=== PATIENT | male | born 1960 | race Caucasian/White ===

== ENCOUNTER 2021-10-26 12:47 | Outpatient (CLI) | payer BC, SELFPAY ==
[2021-10-26 14:43] LABS: Albumin* 3.8 g/dL (3.3-5.0); Chloride* 108 mmol/L (96-114)
[2021-10-26 14:44] LABS: Potassium* 4.4 mmol/L (3.6-5.1); Sodium* 137 mmol/L (135-149)
[2021-10-26 14:46] LABS: Alkaline Phosphatase* 81 U/L (40-150); Aspartate Amino Transferase* 25 U/L (12-35); Bilirubin Total* 0.9 mg/dL (0.1-1.5); Blood Urea Nitrogen* 16 mg/dL (7-30); Carbon Dioxide* 24 mmol/L (20-32); Cholesterol* 209 mg/dL (90-199); Creatinine* 0.8 mg/dL (0.5-1.5); Estimated Glomerular Filt Rate 100 ml/min; Total Protein* 6.3 g/dL (6.0-8.3)
[2021-10-26 14:47] LABS: Alanine Aminotransferase* 20 U/L (4-50); Calcium* 8.7 mg/dL (8.4-10.6); Glucose* 121 mg/dL (60-115); HDL Cholesterol* 45 mg/dL (>=40); LDL Cholesterol Calculated 148 mg/dL (<100); Triglycerides* 80 mg/dL (40-149)
[2021-10-26 15:18] LABS: PSA Screen* 0.72 ng/mL (0.10-4.00)
== END 2021-10-26 12:48 | disposition home or self-care (01) ==
PROVIDERS: PCP Family Medicine; Visit Provider Physician Assistant Medical
DX: Z00.00 Encounter for general adult medical examination without abnormal findings (principal); B00.9 Herpesviral infection, unspecified; Z12.5 Encounter for screening for malignant neoplasm of prostate; Z13.6 Encounter for screening for cardiovascular disorders
CPT/HCPCS: 80053; 80061; 84153

== ENCOUNTER 2021-11-05 10:10 | Emergency (ER) | payer BC, SELFPAY ==
[2021-11-05] VITALS (8 sets, daily range): BP systolic 95–128; BP diastolic 54–80; PULSE 69–86; RESP 18; TEMP 36.9; O2SAT 93–97; BMI 26.6
--- NOTE | 2021-11-05 10:50 | CRLHL7_ITS ---
For Patients: As a result of the Century Cures Act, medical imaging exams and procedure reports are released immediately into your electronic medical record. You may view this report before your referring provider. If you have questions, please contact your health care provider. INDICATION: Right upper abdominal pain TECHNIQUE: Ultrasound abdomen limited. Sonographic images of the right upper quadrant were obtained using cano-scale and color Doppler images. COMPARISON: None FINDINGS: The gallbladder is sonographically unremarkable with no cholelithiasis, gallbladder wall thickening, pericholecystic fluid, gallbladder distension or reported sonographic Velasquez sign. The common duct measures 3 millimeters in maximum diameter which is within the normal range. The visualized portions of the liver, right kidney and abdominal aorta appear normal. IMPRESSION: 1. Normal-appearing gallbladder with no biliary duct dilation. 2. Other findings are as discussed above. Dictated by Mitul Pretty MD @ 11/05/2021 12:41:48 PM (Electronically Signed)
--- NOTE | 2021-11-05 11:06 | ED.ABDPAIN ---
HPI - Abdominal Pain General Date Seen: 11/05/21 Chief Complaint: Abdominal Pain Stated Complaint: Stomach pains Time Seen by Provider: 11/05/21 10:19 Source: patient and family Mode of arrival: ambulatory Limitations: no limitations History of Present Illness HPI narrative: Patient is a very nice 61-year-old gentleman who presents here with his significant other for evaluation of right upper quadrant pain that started last night approximately at all 11:00 p.m.. This awoke him from sleep, he was unable to get comfortable, slight radiation to the back is noted, he ended up going onto the couch all night. Did vomit once last night, with this, and is been nauseous. Never had this before, there is no migration, he describes pain is 8/10 currently. No fevers chills, normal bowel movements, and no dysuria noted. No previous history of this, previous hernia repair, denies use of alcohol, I did not try any other medications or treatments last night. MD elicited complaint: abdominal pain Pertinent past history: none Onset (ago): hour(s) (Started 11:00 p.m. last night) Pain Consistency: constant and intermittent Location: RUQ Severity: moderate Quality: cramping and stabbing Radiation: back Migration to: no migration Exacerbating factors: vomiting and movement Relieving factors: nothing Associated symptoms: nausea and vomiting Related Data Home Medications Medication Instructions Recorded Confirmed fluticasone furoate 27.5 2 spray intranasal QDAY 10/21/21 10/21/21 mcg/actuation nasal spray,suspension (Flonase Sensimist) Previous Rx's Medication Instructions Recorded valacyclovir 1 gram tablet 2,000 mg PO BID #30 tabs 10/21/21 (Valtrex) Allergies Allergy/AdvReac Type Severity Reaction Status Date / Time penicillin V Allergy Unknown Verified 11/05/21 12:20 Ragweed pollen Allergy Mild runny nose Uncoded 10/21/21 12:24 Review of Systems Status of ROS Reports: 10 or more systems reviewed and unremarkable except as noted in History and below PFSH PFSH Surgical History (Updated 10/20/21 @ 13:25 by Jessie Bentley) History of colonoscopy with polypectomy History of left inguinal hernia repair History of repair of rotator cuff Family History (Updated 10/20/21 @ 13:30 by Jessie Bentley) Brother Cerebral aneurysm Liver cancer Myocardial infarction Sister Cerebral aneurysm Social History (Updated 10/20/21 @ 13:31 by Jessie Bentley) Narrative: Chewing tobacco nicotine dependence Does not use illicit drugs occasional alcohol consumption Smoking Status: Never smoker Do you use any of these nicotine containing products: Smokeless Tobacco How often do you have a drink containing alcohol: 2-4 times a month How many standard drinks containing alcohol do you have on a typical day: 1 or 2 How often do you have six or more drinks on one occasion: Never AUDIT-C Alcohol total score: 2 Non-prescribed substance use: denies use service: No Exam Narrative: Exam Narrative: Patient is seen and stab 2, appears to be in some mild distress, vital signs appreciated. Nontoxic Pupils are equal round reactive to light, no scleral icterus redness is noted, this TMs are normal, oropharynx is normal, there is no adenopathy in the anterior posterior chains, neck is supple full range of motion is listed, JVP is flat, chest is good air entry bilaterally with no wheezing crackles noted heart sounds no clicks murmurs or gallops, abdomen is diffusely distended, with right upper quadrant pain on [id number] palpation, bowel sounds are normal, no CVA tenderness is noted. No hernias noted, normal male genitalia, with no tenderness over the groin all regions or testicles bilaterally. Skin reveals no petechiae or rashes he moves all extremities independently well, he does have a bit of a irais complexion consistent with rosacea. Neurologically intact in his upper lower extremities with proximal and distal muscle strength assessed and normal, and bilaterally symmetrical Const: Vital Signs, click to edit/add: Vital Signs - 24 hr 11/05/21 10:19 11/05/21 11:55 11/05/21 11:00 Temperature 98.4 F Pulse Rate [Right Pulse Oximeter] 69 85 69 Respiratory Rate 18 18 18 Blood Pressure [Ri ght Upper Arm] 128/80 108/68 125/79 Pulse Oximetry 96 94 97 Oxygen Delivery Me thod Room Air Room Air Room Air 11/05/21 12:30 11/05/21 13:00 11/05/21 13:30 Temperature Pulse Rate [Right Pulse Oximeter] 86 84 Respiratory Rate Blood Pressure [Ri ght Upper Arm] 99/54 L 99/62 95/62 Pulse Oximetry 93 94 Oxygen Delivery Me thod Room Air Room Air 11/05/21 14:36 11/05/21 15:00 Temperature Pulse Rate [Right Pulse Oximeter] 78 Respiratory Rate Blood Pressure [Ri ght Upper Arm] 113/69 108/75 Pulse Oximetry 94 95 Oxygen Delivery Me thod Room Air Room Air Documenting provider has reviewed patient's vital signs: yes Course Course Hospital Course: 1255 p.m. I went back in and spoke to the patient and his , the ultrasound by my review shows no evidence of any biliary or right kidney issue. Given the degree of his pain when initially some I think it would be reasonable to do a CT with IV contrast to further delineate this. They are comfortable with this plan, instead of waiting for the formal ultrasound report. His pain is much better at this point describing it approximately a 2/10 to me. I did review the CT, showed a normal appendix, maybe a little bit of right-sided hydronephrosis but no evidence of a kidney stone. Possibility of a recent passed kidney stone is also noted. Do not see any evidence of an abdominal aortic aneurysm, gallbladder. Slightly distended but otherwise normal without stones or wall thickening. There was some evidence of some murky Jefry around the sigmoid colon on the right side I wonder if maybe a touch of diverticulitis is there. Vital Signs Vital signs: Initial Vital Signs Temperature 98.4 F 11/05/21 10:19 Temperature Source Temporal Artery Scan 11/05/21 10:19 Pulse Rate 69 11/05/21 10:19 Respiratory Rate 18 11/05/21 10:19 Blood Pressure 128/80 11/05/21 10:19 Blood Pressure Mean 96 11/05/21 10:19 Blood Pressure Position Sitting 11/05/21 10:19 Pulse Oximetry 96 11/05/21 10:19 Oxygen Delivery Method 11/05/21 10:19 Vital Signs Temperature 98.4 F 11/05/21 10:19 Pulse Rate 69 11/05/21 10:19 Respiratory Rate 18 11/05/21 10:19 Blood Pressure 128/80 11/05/21 10:19 Pulse Oximetry 96 11/05/21 10:19 Oxygen Delivery Method 11/05/21 10:19 Temperature 98.4 F 11/05/21 10:19 Pulse Rate 78 11/05/21 15:00 Respiratory Rate 18 11/05/21 11:55 Blood Pressure 108/75 11/05/21 15:00 Pulse Oximetry 95 11/05/21 15:00 Oxygen Delivery Method 11/05/21 15:00 MDM - Abdominal Pain MDM Narrative Medical decision making narrative: During this evaluation of this patient I considered multiple differential diagnosis is which included the life-threatening such as appendicitis, aortic aneurysm, mesenteric ischemia, bowel perforation, volvulus, and bowel obstruction. Other differential diagnosis is include but are not limited to cholecystitis, pancreatitis, hepatitis, gastritis, GERD, diverticulitis, peptic ulcer disease, pyelonephritis/UTI, renal colic/stone, testicular torsion as well as other acute scrotal processes, inflammatory bowel disease, as well as other etiologies Differential Diagnosis Differential diagnosis: Likely abdominal pain, acute appendicitis, calculus of kidney, constipation, diverticulitis, gastroenteritis, pancreatitis and small bowel obstruction Medical Records Attestation: I reviewed the patient's medical records. Lab Data Attestation: I reviewed the patient's lab results. Labs: Lab Results 11/05/21 11/05/21 11/05/21 Range/Units 10:50 10:55 10:55 Sodium 136 (135-149) mmol/L Potassium 4.2 (3.6-5.1) mmol/L Chloride 106 (96-114) mmol/L Carbon Dioxide 21 (20-32) mmol/L BUN 18 (7-30) mg/dL Creatinine 0.7 (0.5-1.5) mg/dL Estimated Creat Clear 76.59 Estimated GFR 104 ml/min Glucose 165 H (60-115) mg/dL Lactate 1.4 (0.5-1.9) mmol/L Calcium 8.6 (8.4-10.6) mg/dL Total Bilirubin 1.0 (0.1-1.5) mg/dL Direct Bilirubin 0.1 (0.0-0.5) mg/dL AST 22 (12-35) U/L ALT 20 (4-50) U/L Alkaline Phosphatase 82 (40-150) U/L C-Reactive Protein 1.0 (0.5-1.0) mg/dL Total Protein 6.8 (6.0-8.3) g/dL Albumin 4.1 (3.3-5.0) g/dL Amylase 67 (18-89) U/L Lipase 41 (23-300) U/L SARS-CoV-2 (PCR) Negative SARS-CoV-2 (Negative) Influenza Type A (PCR) Negative PCR FLU A (Negative) Influenza Type B (PCR) Negative PCR FLU B (Negative) RSV (PCR) Negative PCR RSV (Negative) POC Troponin I (0.01-0.04) ng/ml 11/05/21 Range/Units 10:55 Sodium (135-149) mmol/L Potassium (3.6-5.1) mmol/L Chloride (96-114) mmol/L Carbon Dioxide (20-32) mmol/L BUN (7-30) mg/dL Creatinine (0.5-1.5) mg/dL Estimated Creat Clear Estimated GFR ml/min Glucose (60-115) mg/dL Lactate (0.5-1.9) mmol/L Calcium (8.4-10.6) mg/dL Total Bilirubin (0.1-1.5) mg/dL Direct Bilirubin (0.0-0.5) mg/dL AST (12-35) U/L ALT (4-50) U/L Alkaline Phosphatase (40-150) U/L C-Reactive Protein (0.5-1.0) mg/dL Total Protein (6.0-8.3) g/dL Albumin (3.3-5.0) g/dL Amylase (18-89) U/L Lipase (23-300) U/L SARS-CoV-2 (PCR) (Negative) Influenza Type A (PCR) (Negative) Influenza Type B (PCR) (Negative) RSV (PCR) (Negative) POC Troponin I 0.00 L (0.01-0.04) ng/ml ECG Data Attestation: I personally reviewed and interpreted this ECG as follows: ECG interpretation date: 11/05/21 Prior ECG tracings: not available for review Interpretation: EKG done at 11:19 a.m. shows normal sinus rhythm, with a ventricular rate of 73, some mild ST wave flattening is noted throughout the precordium, this is nonspecific, for S QT and KS intervals are normal. Assessment: Mild nonspecific ST wave changes. Otherwise normal. Discharge Plan Discharge Clinical Impression: Diverticulitis, Gallbladder anomaly Patient Disposition: Home w/ Parent or Adult Condition: Stable Instructions: Diverticulitis (ED), Diverticulitis Diet (ED) Additional Instructions: Radiologist in agreed with me but I think there is an element of diverticulitis here. There was some distention of her gallbladder which is pretty normal in a nonfasting state also, but no evidence of stones or other abnormality. I think a reasonable course here would be to put you on some antibiotics for a week or so and see how you respond to this. I did give you some pain medication you can try 2. The good news is there is no other severe abnormality noted on your CT scan. If you continue to have problems then I would ask you to follow-up with either primary care or General surgery. Low-fat diet and diverticula slight diet are suggested. If you have not had colonoscopy done in the last 5 years then I would strongly recommend a repeat. Prescription given via instymeds Prescriptions: No Action Flonase Sensimist 27.5 mcg/actuation spray,suspension 2 spray intranasal QDAY Rx Instructions: into each nostril valacyclovir [Valtrex] 1 gram tablet 2,000 mg PO BID Qty: 30 1RF Rx Instructions: 2grams twice daily for 1 day for onset of cold sores Follow Up/Referrals: Holland David MD [Primary Care Provider] - Stand Alone Forms: [id number] Info Instructions
[2021-11-05 11:07] LABS: Lactate* 1.4 mmol/L (0.5-1.9)
[2021-11-05] MEDS: KETOROLAC 30 MG/ML inj IVP (11:12)
[2021-11-05] MEDS: 0.9 % SODIUM CHLORIDE 1000 ml 1,000 ML IV (11:12)
[2021-11-05] MEDS: MORPHINE 4 MG/ML INJ IVP (11:14)
[2021-11-05] MEDS: ONDANSETRON 2 MG/ML inj 4 MG IVP (11:15)
[2021-11-05 11:28] LABS: Chloride* 106 mmol/L (96-114)
[2021-11-05 11:29] LABS: Albumin* 4.1 g/dL (3.3-5.0); Potassium* 4.2 mmol/L (3.6-5.1); Sodium* 136 mmol/L (135-149)
[2021-11-05 11:31] LABS: Amylase* 67 U/L (18-89)
[2021-11-05 11:32] LABS: Alanine Aminotransferase* 20 U/L (4-50); Alkaline Phosphatase* 82 U/L (40-150); Aspartate Amino Transferase* 22 U/L (12-35); Bilirubin Direct* 0.1 mg/dL (0.0-0.5); Blood Urea Nitrogen* 18 mg/dL (7-30); Calcium* 8.6 mg/dL (8.4-10.6); Carbon Dioxide* 21 mmol/L (20-32); Creatinine* 0.7 mg/dL (0.5-1.5); Est. Creatinine Clearance* 76.59; Estimated Glomerular Filt Rate 104 ml/min; Glucose* 165 mg/dL (60-115); Lipase* 41 U/L (23-300); Total Protein* 6.8 g/dL (6.0-8.3)
[2021-11-05 11:47] LABS: PCR FLU A Negative PCR FLU A (Negative); PCR FLU B Negative PCR FLU B (Negative); PCR RSV Negative PCR RSV (Negative)
[2021-11-05 11:58] LABS: SARS PCR* Negative SARS-CoV-2 (Negative)
--- NOTE | 2021-11-05 12:06 | CRLHL7_ITS ---
For Patients: As a result of the Century Cures Act, medical imaging exams and procedure reports are released immediately into your electronic medical record. You may view this report before your referring provider. If you have questions, please contact your health care provider. INDICATION: Abdominal pain. TECHNIQUE: CT abdomen/pelvis with intravenous contrast, 89 mL [id number]. Coronal and sagittal reformats. COMPARISON: Earlier same day abdominal ultrasound. FINDINGS: The imaged lower chest is unremarkable. Normal liver contour. Few tiny millimetric hypoattenuating hepatic lesions are too small to characterize. The portal veins are patent. Distended gallbladder without appreciable gallstones or pericholecystic fat stranding. No biliary dilatation. The pancreas, spleen, and adrenals are unremarkable. Symmetric renal enhancement. No hydronephrosis bilaterally. Unremarkable bladder and prostate. Colonic diverticulosis without acute inflammatory changes. Normal appendix. No free-air, free-fluid, or focal collection. Normal caliber abdominal aorta. Major branch vessels patent. IMPRESSION: 1. Nonspecific gallbladder distention, possibly due to fasting state. 2. No additional acute findings or CT correlate for abdominal pain definitively identified. Dictated by David Cee MD @ 11/05/2021 2:39:47 PM Please note that all CT scans at this facility use dose modulation, iterative reconstruction, and/or weight-based dosing when appropriate to reduce radiation dose to as low as reasonably achievable. Dictated by: David Cee MD @ 11/05/2021 14:39:53 (Electronically Signed)
== END 2021-11-05 15:27 | disposition home or self-care (01) ==
PROVIDERS: Emergency Provider Family Medicine; PCP Family Medicine
DX: K57.92 Diverticulitis of intestine, part unspecified, without perforation or abscess without bleeding (principal); K82.9 Disease of gallbladder, unspecified
CPT/HCPCS: 36415; 74177; 76705; 80048; 80076; 82150; 83605; 83690; 84484; 86140; 87502; 87634; 87635; 93005; 96374; 96375; 99284; J1885; J2270; J2405; J7030; Q9967

== ENCOUNTER 2023-03-23 07:23 | Outpatient (CLI) | payer BC, SELFPAY | END 2023-03-23 07:24 | disposition home or self-care (01) | LOC: NFLDREF 03-26 11:05 | PROVIDERS: PCP Physician Assistant Medical; Referring Provider Physician Assistant Medical; Visit Provider Physician Assistant Medical | DX: Z00.00 Encounter for general adult medical examination without abnormal findings (principal); E78.5 Hyperlipidemia, unspecified; R73.03 Prediabetes; Z12.5 Encounter for screening for malignant neoplasm of prostate | CPT/HCPCS: 80048; 80061; G0103 ==

== ENCOUNTER 2023-04-27 10:06 | Outpatient (CLI) | payer BC, SELFPAY ==
--- NOTE | 2023-04-27 10:54 | W.ANESCHARGE ---
Anesthesia Charges Start Date/Time Anesthesia Start Date: 04/27/23 Anesthesia Start Time: 10:54 Stop Date/Time Anesthesia Stop Date: 04/27/23 Anesthesia Stop Time: 11:21
--- NOTE | 2023-04-27 11:26 | W.ANESCHARGE ---
Anesthesia Charges Start Date/Time Anesthesia Start Date: 04/27/23 Anesthesia Start Time: 10:54 Stop Date/Time Anesthesia Stop Date: 04/27/23 Anesthesia Stop Time: 11:21
== END 2023-04-27 10:07 | disposition home or self-care (01) ==
LOC: OP CLINIC 10:06
PROVIDERS: PCP Physician Assistant Medical; Visit Provider Internal Medicine
DX: Z12.11 Encounter for screening for malignant neoplasm of colon (principal); K63.5 Polyp of colon; K57.30 Diverticulosis of large intestine without perforation or abscess without bleeding; K64.8 Other hemorrhoids
CPT/HCPCS: 00811; 45380; 88305; J2704

== ENCOUNTER 2024-01-30 08:39 | Inpatient (IN) | payer BC, SELFPAY ==
[2024-01-30] VITALS (7 sets, daily range): BP systolic 106–133; BP diastolic 72–87; PULSE 89–100; RESP 16–20; TEMP 36.7–37.2; O2SAT 94–96; BMI 24.4; BMI 25.2
--- NOTE | 2024-01-30 08:58 | ED_ITS ---
HPI - General Adult General Chief complaint: Abdominal Pain Stated complaint: Diverticulitis/GallBladder from Clinic Time Seen by Provider: 01/30/24 08:49 History of Present Illness HPI narrative: was sent here from [facility] due to abd pain. this started on Sunday. denies n/v/d. has not eaten much since 01/27- lunch. pain increases in intensity at times. has not been sleeping much for the last 2 nights. is very flushed . has had chills at home. hx of diverticulosis. 63-year-old man presenting to the emergency department with complaint of abdominal pain. It sounds as though this is been more upper abdomen and began after eating lunch about 2 days ago. Has escalated since. For sleep. Had chills. Reviewing record I see that in October of 2019 to was seen in this emergency department with suspected diverticulitis though less clear on imaging. Pain was in the same area; more in the right upper abdomen. Mr. Singh has tried Tums without relief. Also acetaminophen. No significant nausea but has anorexia. Initially noting not had a bowel movement over this period of time either but has had slow very small BMs. Otherwise is denies any changes in stool. They have a been unusually dark. No hematochezia. I was called by the clinic where he presented by the provider with concerns of gallbladder related pain. They note how the drive over here, the bumps were particularly uncomfortable. Related Data Home Medications ?Medication ?Instructions ?Recorded ?Confirmed fluticasone furoate 27.5 2 spray intranasal DAILY PRN 10/21/21 01/30/24 mcg/actuation nasal spray,suspension (Flonase Sensimist) valacyclovir 1 gram tablet 2,000 mg PO BID PRN 01/30/24 01/30/24 (Valtrex) Previous Rx's ?Medication ?Instructions ?Recorded hydrocodone 5 mg-acetaminophen 325 1 tab PO Q6H PRN pain #20 tabs 02/01/24 mg tablet sennosides 8.6 mg capsule (senna) 8.6 mg PO DAILY PRN constipation 02/01/24 #90 caps Allergies Allergy/AdvReac Type Severity Reaction Status Date / Time ragweed pollen Allergy Mild RUNNY NOSE Verified 01/30/24 13:51 penicillin V Allergy Unknown CHILDHOOD Verified 01/30/24 13:51 - UNSURE OF REACTION Review of Systems Status of ROS: Reports: 6 or more systems reviewed and unremarkable except as noted in History and below PFSH PFS Medical History (Updated 02/07/24 @ 00:01 by Roosevelt Keane) Chews tobacco regularly ?Z72.0 - Tobacco use (ICD-10) Seasonal allergic rhinitis (09/17/09) ?J30.2 - Other seasonal allergic rhinitis (ICD-10) Rosacea (09/17/09) ?L71.9 - Rosacea, unspecified (ICD-10) HSV-1 (herpes simplex virus 1) infection ?B00.9 - Herpesviral infection, unspecified (ICD-10) Surgical History (Updated 02/04/24 @ 09:58 by Samia Beckham PA-C) History of cholecystectomy ?Z90.49 - Acquired absence of other specified parts of digestive tract (ICD- 10) History of repair of rotator cuff ?Z98.890 - Other specified postprocedural states (ICD-10) History of left inguinal hernia repair ?Z98.890 - Other specified postprocedural states (ICD-10) ?Z87.19 - Personal history of other diseases of the digestive system (ICD-10) History of colonoscopy with polypectomy ?Z98.890 - Other specified postprocedural states (ICD-10) ?Z86.010 - Personal history of colonic polyps (ICD-10) Family History Brother Cerebral aneurysm Liver cancer Myocardial infarction Sister Cerebral aneurysm Social History Narrative: Chewing tobacco nicotine dependence Does not use illicit drugs occasional alcohol consumption What is your current living situation?: I presently have a place to live Problems where you live: no known problems Problems where you live details: na In the past 12 months, utilities in danger of being shut off: no In past 12 months, lack of transportation kept you from medical appts, meetings, work, or getting things needed for daily living: no In the past 12 mos, have been you worried that your food would run out before you had money to buy more?: never true In the past 12 mos, the food you bought just didn't last and you didn't have money to buy more?: never true Highest level of school completed/degree received: Associate degree: occupational, technical, vocational program Smoking Status: Never smoker Do you use any of these nicotine containing products: Smokeless Tobacco Second hand tobacco smoke exposure: No How often do you have a drink containing alcohol: 2-4 times a month How many standard drinks containing alcohol do you have on a typical day: 1 or 2 How often do you have six or more drinks on one occasion: Never AUDIT-C Alcohol total score: 2 Non-prescribed substance use: denies use How often does anyone, including family, friends and others, physically hurt you : never How often does anyone, including family, friends and others, insult or talk down to you: never How often does anyone, including family, friends and others, threaten you with harm: never How often does anyone, including family, friends and others, scream or curse at you: never service: No Exam Narrative: Exam Narrative: Pleasant. NAD. Skin is warm and dry. Extremities are well perfused and without edema. Heart is is in regular rate and rhythm. Little distant. Abdomen with present but diminished bowel sounds. He is a little tense throughout the abdomen which might represent guarding. Maybe just has some trouble relaxing. Most tenderness seems to be in the epigastrium and especially the right upper abdomen. Const: Vital Signs, click to edit/add: Vital Signs - 24 hr 01/30/24 08:45 Temperature 98.9 F Pulse Rate [Pulse Oximeter] 89 Respiratory Rate 16 Blood Pressure [Le ft Upper Arm] 133/86 Pulse Oximetry 95 Oxygen Delivery Me thod Room Air Documenting provider has reviewed patient's vital signs: yes Course Vital Signs Vital signs: Initial Vital Signs Temperature 98.9 F 01/30/24 08:45 Temperature Source Temporal Artery Scan 01/30/24 08:45 Pulse Rate 89 01/30/24 08:45 Pulse Rhythm Regular 01/30/24 08:45 Respiratory Rate 16 01/30/24 08:45 Blood Pressure 133/86 01/30/24 08:45 Blood Pressure Mean 101 01/30/24 08:45 Blood Pressure Position Supine 01/30/24 08:45 Pulse Oximetry 95 01/30/24 08:45 Oxygen Delivery Method Room Air 01/30/24 08:45 Vital Signs Temperature 98.9 F 01/30/24 08:45 Pulse Rate 89 01/30/24 08:45 Respiratory Rate 16 01/30/24 08:45 Blood Pressure 133/86 01/30/24 08:45 Pulse Oximetry 95 01/30/24 08:45 Oxygen Delivery Method Room Air 01/30/24 08:45 Temperature 98.3 F 02/01/24 07:00 Pulse Rate 75 02/01/24 07:00 Respiratory Rate 16 02/01/24 07:00 Blood Pressure 117/82 02/01/24 07:00 Pulse Oximetry 95 02/01/24 07:00 Oxygen Delivery Method Room Air 02/01/24 07:00 Medications Administered Medications: Discontinued Medications Generic Name Dose Route Start Last Admin Trade Name Freq PRN Reason Stop Dose Admin Acetaminophen 650 - 975 mg 01/30/24 14:13 02/01/24 04:54 Acetaminophen 325 Mg Tablet PO 975 mg Q6H PRN Administration Bupivacaine HCl 30 ml 01/31/24 08:13 01/31/24 08:13 Bupivacaine 0.5% 30 Ml INJECTION 01/31/24 08:14 20 ml ONCE ONE Administration Hydromorphone HCl 0.2 - 0.5 mg 01/31/24 11:46 02/01/24 09:17 Hydromorphone 0.5 Mg/0.5 Ml Inj IVP 0.5 mg Q1H PRN Administration Pain Sodium Chloride 1,000 mls @ 1,000 mls/hr 01/30/24 11:40 01/30/24 12:12 0.9 % Sodium Chloride 1000 Ml IV 01/30/24 12:39 1,000 mls/hr .Q1H ONE Administration Piperacillin Sod/Tazobactam 100 mls @ 200 mls/hr 01/30/24 12:20 01/30/24 12:40 Sod 4.5 gm/ Sodium Chloride IVPB 01/30/24 12:21 200 mls/hr ONCE ONE Administration Sodium Chloride 500 mls @ 500 mls/hr 01/30/24 14:15 01/30/24 14:21 0.9 % Sodium Chloride 500 Ml IV 01/30/24 15:14 500 mls/hr .Q1H MERRICK Administration Lactated Ringer's 1,000 mls @ 125 mls/hr 01/30/24 14:13 01/31/24 15:03 Lactated Ringers 1000 Ml IV Not Given .Q8H MERRICK Metronidazole 500 mg in 100 mls @ 100 mls/hr 01/30/24 19:00 02/01/24 08:01 Metronidazole IVPB Infused Q8H MERRICK Infusion Ceftriaxone Sodium 2 gm/ 100 mls @ 200 mls/hr 01/30/24 18:30 01/31/24 19:30 Sodium Chloride IVPB Infused Q24H MERRICK Infusion Sodium Chloride 250 mls @ 250 mls/hr 01/31/24 13:47 01/31/24 13:53 0.9 % Sodium Chloride 250 Ml IV 01/31/24 14:46 250 mls/hr .Q1H ONE Administration Ketorolac Tromethamine 30 mg 01/30/24 09:22 01/30/24 09:35 Ketorolac 30 Mg/Ml Inj IVP 01/30/24 09:23 30 mg ONCE ONE Administration Ketorolac Tromethamine 30 mg 01/30/24 15:04 01/31/24 20:32 Ketorolac 15 Mg/Ml Inj IVP 30 mg Q6H PRN Administration Pain Melatonin 3 - 6 mg 01/30/24 14:13 01/31/24 20:32 Melatonin 3 Mg Tablet PO 6 mg HS PRN Administration Morphine Sulfate 4 mg 01/30/24 09:22 01/30/24 09:35 Morphine 4 Mg/Ml Inj IVP 01/30/24 09:23 4 mg ONCE ONE Administration Morphine Sulfate 4 mg 01/30/24 14:21 01/31/24 06:07 Morphine 4 Mg/Ml Inj IVP 4 mg Q1H PRN Administration Pain Pantoprazole Sodium 40 mg 01/30/24 14:13 01/30/24 14:29 Pantoprazole Sodium 40 Mg Inj IVP 01/30/24 14:14 40 mg ONCE ONE Administration Medical Decision Making MDM Narrative Medical decision making narrative: This could be diverticulitis as suspected 2 years ago though was not certain. Gallbladder disease is a possibility as well though would seem to be low risk for this. Seems atypical for urinary tract infection or ureteral stone. Will collect labs to try to focus imaging either limited ultrasound or CT again. If more certain on prior diagnosis with similar symptoms would consider just treating for diverticulitis otherwise. IV pain management with morphine and Toradol initially. White count is rather elevated. Requested an IV dressed CT of the abdomen and pelvis. I have independently reviewed these images and looks to show inflammatory changes fat stranding at the hepatic flexure. Gallbladder looks to be distended with cholelithiasis. Radiology over-read below TECHNIQUE: CT abdomen and pelvis without contrast. COMPARISON: None. FINDINGS: Lower chest: Bibasilar atelectasis. Liver: Normal in size and attenuation. No suspicious masses on a non-contrast exam . Gallbladder and bile ducts: Distention of the gallbladder with moderate adjacent fat stranding. There is cholelithiasis with edematous gallbladder wall thickening. Likely rhabdo fat stranding along the hepatic flexure. CBD measures 9 millimeter and is dilated. L no obvious radiodense choledocholithiasis. Imited assessment for choledochal lithiasis Pancreas: Moderate fatty replacement of the pancreas. Spleen: Normal in size. No masses. Adrenal glands: No suspicious mass. Kidneys: Normal in size. No stones, or hydronephrosis. Left-sided extrarenal pelvis/parapelvic cyst. GI tract: No bowel obstruction. Normal appendix. Diverticulosis without diverticulitis. Vasculature: Abdominal aorta is normal in caliber. Lymph nodes: No lymphadenopathy. Peritoneum/Abdominal Wall: No free air or significant free fluid. Pelvis: No pelvic masses. Bones: Lumbar vertebral body height and alignment is maintained with scattered mild degenerative changes. No acute vertebral compression fracture. No concerning bony lesion. IMPRESSION: Findings are concerning for cholelithiasis with acute cholecystitis. Dilatation of the common bile duct measuring up to 9 millimeter. No radiodense choledocholithiasis. Correlate with liver function tests to exclude distal biliary obstruction. Possible reactive fat stranding adjacent to hepatic flexure. Discussed this case with General surgery on-call. Requesting ultrasound characterize further. Would note that transaminases are normal as is bilirubin so doubtful that there is choledocholithiasis. I discussed findings with survey operations director. TECHNIQUE: Ultrasound abdomen limited. Sonographic images of the right upper quadrant were obtained using cano-scale and color Doppler images. COMPARISON: CT abdomen and pelvis January 2024 FINDINGS: Limited exam secondary to bowel gas and patient`s inability to take a deep breath. Liver: Normal in size and echotexture. No suspicious masses. No intrahepatic biliary dilatation. Hepatopetal flow of the portal vein. Gallbladder: No gallbladder is distended with multiple gallstones within. Possible large calculus of 3.2 centimeter near the GB neck. There is edematous wall thickening of the gallbladder measuring about 6 millimeter. CBD measures 5 millimeter in the proximal part. Distal CBD is obscured by bowel gas. Pancreas: Pancreas is partially imaged secondary to bowel gas. Included pancreatic head and proximal body is within normal limits. Vasculature: Patent IVC. Aorta is of included proximal abdominal normal caliber and measures 2.5 cm. Right kidney measures 9.9 centimeter. No hydronephrosis. Preserved corticomedullary differentiation and cortical thickness. Renal vascularity is maintained. IMPRESSION: Cholelithiasis with findings concerning for acute cholecystitis. Discussing again with General surgery with recommendations for admission and surgery. IV antibiotics. Admitted to hospitalist Medical Records Medical records reviewed: Yes I reviewed the patient's medical records Lab Data Lab results reviewed: Yes I reviewed the patient's lab results Labs: Lab Results 01/30/24 01/30/24 Range/Units 09:35 11:31 WBC 16.43 H (4.50-11.00) K/uL RBC 5.04 (4.30-5.90) m/uL Hgb 15.7 (13.5-17.5) gm/dL Hct 47.6 (37.0-53.0) % MCV 94 (80-100) fL MCH 31 (26-34) pg MCHC 33 (32-36) gm/dL RDW Coeff of Alden 11.8 (11.5-15.5) % Plt Count 121 L (140-440) K/uL Neut % (Auto) 90.9 H (42.0-72.0) % Lymph % (Auto) 2.3 L (20-44) % [place] % (Auto) 5.8 (0.0-11.0) % Eos % (Auto) 0.0 (0.0-7.0) % Baso % (Auto) 0.1 (0.0-3.0) % Neut # (Auto) 14.90 H (1.7-7.0) K/uL Lymph # (Auto) 0.40 L (0.90-2.90) K/uL [place] # (Auto) 1.00 H (0.00-0.90) K/UL Eos # (Auto) 0.00 (0.00-0.50) K/uL Baso # (Auto) 0.00 (0.00-0.30) K/uL Abs Immat Gran (auto) 0.10 (0.00-0.30) K/uL Imm/Tot Granulo (auto) 0.9 % Sodium 133 L (135-149) mmol/L Potassium 4.2 (3.6-5.1) mmol/L Chloride 102 (96-114) mmol/L Carbon Dioxide 24 (20-32) mmol/L Anion Gap 7 (7-15) mEq/L BUN 13 (7-30) mg/dL Creatinine 0.8 (0.5-1.5) mg/dL Estimated Creat Clear 77.06 Estimated GFR 99 ml/min Glucose 194 H (60-115) mg/dL Hemoglobin A1c 6.1 H (0-5.6) % Calcium 9.0 (8.4-10.6) mg/dL Total Bilirubin 2.0 H (0.1-1.5) mg/dL Direct Bilirubin 0.4 (0.0-0.5) mg/dL GGT 70 H (8-55) U/L AST 31 (12-35) U/L ALT 32 (4-50) U/L Alkaline Phosphatase 78 (40-150) U/L C-Reactive Protein 24.3 H (0.5-1.0) mg/dL Total Protein 7.1 (6.0-8.3) g/dL Albumin 3.9 (3.3-5.0) g/dL Lipase 22 L (23-300) U/L Lab Acknowledgement Test Added Discharge Plan Discharge Clinical Impression: Calculous cholecystitis, Abdominal pain Patient Disposition: Admitted As Observation Condition: Stable Activity Level: No strenuous activity Activity Detail: Activity as tolerated. Avoid strenuous activity. No lifting greater than 20 lb for 2 weeks. Discharge Diet: Low Fat/Low Cholesterol
[2024-01-30] MEDS: KETOROLAC 30 MG/ML inj IVP (09:35)
[2024-01-30] MEDS: MORPHINE 4 MG/ML INJ IVP ×3 (09:35→21:02)
[2024-01-30 10:00] LABS: Chloride* 102 mmol/L (96-114)
[2024-01-30 10:01] LABS: Albumin* 3.9 g/dL (3.3-5.0); Sodium* 133 mmol/L (135-149)
[2024-01-30 10:02] LABS: Potassium* 4.2 mmol/L (3.6-5.1)
[2024-01-30 10:04] LABS: Alanine Aminotransferase* 32 U/L (4-50); Alkaline Phosphatase* 78 U/L (40-150); Anion Gap 7 mEq/L (7-15); Aspartate Amino Transferase* 31 U/L (12-35); Bilirubin Direct* 0.4 mg/dL (0.0-0.5); Blood Urea Nitrogen* 13 mg/dL (7-30); Carbon Dioxide* 24 mmol/L (20-32); Creatinine* 0.8 mg/dL (0.5-1.5); Est. Creatinine Clearance* 77.06; Estimated Glomerular Filt Rate 99 ml/min; Total Protein* 7.1 g/dL (6.0-8.3)
[2024-01-30 10:05] LABS: Basophils Percent Auto 0.1 % (0.0-3.0); Glucose* 194 mg/dL (60-115); Hematocrit 47.6 % (37.0-53.0); Hemoglobin* 15.7 gm/dL (13.5-17.5); Immature Granulocytes Pct Auto 0.9 %; Lymphocytes Percent Auto 2.3 % (20-44); Mean Corpuscular HGB Conc 33 gm/dL (32-36); Mean Corpuscular Hemoglobin 31 pg (26-34); Mean Corpuscular Volume 94 fL (80-100); Monocytes Percent Auto 5.8 % (0.0-11.0); Neutrophils Percent Auto 90.9 % (42.0-72.0); Platelet Count* 121 K/uL (140-440); RDW Coefficient of Variation % 11.8 % (11.5-15.5); Red Blood Count 5.04 m/uL (4.30-5.90); White Blood Count* 16.43 K/uL (4.50-11.00)
[2024-01-30 10:16] LABS: Slide Review Reflex No
[2024-01-30 10:19] LABS: C Reactive Protein* 24.3 mg/dL (0.5-1.0)
--- NOTE | 2024-01-30 10:28 | CRLHL7_ITS ---
For Patients: As a result of the Century Cures Act, medical imaging exams and procedure reports are released immediately into your electronic medical record. You may view this report before your referring provider. If you have questions, please contact your health care provider. INDICATION: Epigastric and right upper abdominal pain. TECHNIQUE: CT abdomen and pelvis without contrast. COMPARISON: None. FINDINGS: Lower chest: Bibasilar atelectasis. Liver: Normal in size and attenuation. No suspicious masses on a non-contrast exam . Gallbladder and bile ducts: Distention of the gallbladder with moderate adjacent fat stranding. There is cholelithiasis with edematous gallbladder wall thickening. Likely rhabdo fat stranding along the hepatic flexure. CBD measures 9 millimeter and is dilated. L no obvious radiodense choledocholithiasis. Imited assessment for choledochal lithiasis Pancreas: Moderate fatty replacement of the pancreas. Spleen: Normal in size. No masses. Adrenal glands: No suspicious mass. Kidneys: Normal in size. No stones, or hydronephrosis. Left-sided extrarenal pelvis/parapelvic cyst. GI tract: No bowel obstruction. Normal appendix. Diverticulosis without diverticulitis. Vasculature: Abdominal aorta is normal in caliber. Lymph nodes: No lymphadenopathy. Peritoneum/Abdominal Wall: No free air or significant free fluid. Pelvis: No pelvic masses. Bones: Lumbar vertebral body height and alignment is maintained with scattered mild degenerative changes. No acute vertebral compression fracture. No concerning bony lesion. IMPRESSION: Findings are concerning for cholelithiasis with acute cholecystitis. Dilatation of the common bile duct measuring up to 9 millimeter. No radiodense choledocholithiasis. Correlate with liver function tests to exclude distal biliary obstruction. Possible reactive fat stranding adjacent to hepatic flexure. Please note that all CT scans at this facility use dose modulation, iterative reconstruction, and/or weight-based dosing when appropriate to reduce radiation dose to as low as reasonably achievable. Dictated by Jose Beckham MD @ 01/30/2024 11:25:49 AM (Electronically Signed)
--- NOTE | 2024-01-30 11:31 | CRLHL7_ITS ---
For Patients: As a result of the Century Cures Act, medical imaging exams and procedure reports are released immediately into your electronic medical record. You may view this report before your referring provider. If you have questions, please contact your health care provider. INDICATION: Right upper quadrant abdomen pain. TECHNIQUE: Ultrasound abdomen limited. Sonographic images of the right upper quadrant were obtained using cano-scale and color Doppler images. COMPARISON: CT abdomen and pelvis January 2024 FINDINGS: Limited exam secondary to bowel gas and patient`s inability to take a deep breath. Liver: Normal in size and echotexture. No suspicious masses. No intrahepatic biliary dilatation. Hepatopetal flow of the portal vein. Gallbladder: No gallbladder is distended with multiple gallstones within. Possible large calculus of 3.2 centimeter near the GB neck. There is edematous wall thickening of the gallbladder measuring about 6 millimeter. CBD measures 5 millimeter in the proximal part. Distal CBD is obscured by bowel gas. Pancreas: Pancreas is partially imaged secondary to bowel gas. Included pancreatic head and proximal body is within normal limits. Vasculature: Patent IVC. Aorta is of included proximal abdominal normal caliber and measures 2.5 cm. Right kidney measures 9.9 centimeter. No hydronephrosis. Preserved corticomedullary differentiation and cortical thickness. Renal vascularity is maintained. IMPRESSION: Cholelithiasis with findings concerning for acute cholecystitis. Dictated by Jose Beckham MD @ 01/30/2024 12:25:26 PM (Electronically Signed)
[2024-01-30] MEDS: 0.9 % SODIUM CHLORIDE 1000 ml 1,000 ML IV (12:12)
[2024-01-30] MEDS: PIPERACILLIN/TAZOBACTAM 4.5 GM in 0.9 % SODIUM CHLORIDE Mini-bag 100 ML IVPB (12:40)
[2024-01-30 13:03] LABS: Lipase* 22 U/L (23-300)
[2024-01-30] MEDS: 0.9 % SODIUM CHLORIDE 500 ML 500 ML IV (14:21)
[2024-01-30] MEDS: PANTOPRAZOLE SODIUM 40 MG INJ IVP (14:29)
--- NOTE | 2024-01-30 15:06 | P.IMHP_ITS ---
Hospitalist- H&P: HPI History of Present Illness Date Seen: 01/30/24 Chief complaint: Diverticulitis/GallBladder from Clinic Narrative: ADMISSION HISTORY AND PHYSICAL - HOSPITALIST Chief Complaint: acute abdominal pain; acute cholecystitis with calculus possible obstruction HPI: 63 y/o generally healthy WM was in usual state of health until 2 days ago. sudden onset of boring RUQ abdominal pain after eating. this waxed and waned over the next two days; mild temps and sweats. no appetitie. some chills. no diarrhea. some nausea without emesis. tried tums and tylenol. came to [facility] and was promptly sent to the ED. CT scan, u/s and labs revealed acute cholecystitis with calculus and concern for obstruction noted. he was admitted to hospitalist service with a general surgery consult. 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 No daily meds; flonase prn. valtrex prn for cold sores. brother of AMI at 57, both parents lived to old age. PCN allergy. prediabetes - will check A1C ER COURSE: pain control, antibiotics, work up for abdominal pain. CODE STATUS: FULL CODE EMERGENCY CONTACT PLAN: SinghCarolyn Rel To Pat Cell I've updated the PFSH, medications and allergies in the Expanse tabs. INVESTIGATIONS: LABS/MICRO/ECG/IMAGING elevated WBC, low platelets (chronic), sodium corrects to 135 in the setting of moderate hyperglycemia. reviewed imaging. edema about the gallbladder, stones, fat stranding. REVIEW OF SYSTEMS: 12-point ROS completed with patient and negative unless otherwise stated in HPI or below. PHYSICAL EXAM: CONSTITUTIONAL: Conversive, good historian. A/O. Knows setting and context. NAD. Not toxic. VITAL SIGNS: see record. HEENT: Normocephalic, atraumatic. PERRL, EOMI, conjunctivae pink, no scleral icterus. Ears and nose externally normal. Pharynx normal. NECK: No JVD. No carotid bruit, no thyromegaly, no adenopathy. CHEST: Clear to auscultation bilaterally HEART: S1 and S2 normal. No harsh murmurs. Edema MUSCULOSKELETAL: No gross joint deformity or swelling. ABDOMEN: soft. mild guarding to RUQ. NEURO: Cranial nerves intact. Grossly intact. No asymmetric findings. SKIN: No rashes, petechiae, concerning changes PSYCHIATRIC: Euthymic. ADMIT TO MEDSURG: FLOOR CARE DVT: SCDs; ambulator GI: IV PPI Time spent: Today I spent 75 minutes seeing the patient, discussing the patient with ER staff, reviewing Expanse and EPIC notes/diagnostics, discussing the care plan with our care time that includes social work, PT/OT, pharmacy, RT, nursing home and documenting my impressions and plan in the medical record. [facility] Medical History (Updated 01/30/24 @ 17:27 by Viktoriya Bernal MD) Chews tobacco regularly ?Z72.0 - Tobacco use (ICD-10) Seasonal allergic rhinitis (09/17/09) ?J30.2 - Other seasonal allergic rhinitis (ICD-10) Rosacea (09/17/09) ?L71.9 - Rosacea, unspecified (ICD-10) HSV-1 (herpes simplex virus 1) infection ?B00.9 - Herpesviral infection, unspecified (ICD-10) Surgical History History of repair of rotator cuff ?Z98.890 - Other specified postprocedural states (ICD-10) History of left inguinal hernia repair ?Z98.890 - Other specified postprocedural states (ICD-10) ?Z87.19 - Personal history of other diseases of the digestive system (ICD-10) History of colonoscopy with polypectomy ?Z98.890 - Other specified postprocedural states (ICD-10) ?Z86.010 - Personal history of colonic polyps (ICD-10) Family History Brother Cerebral aneurysm Liver cancer Myocardial infarction Sister Cerebral aneurysm Social History Narrative: Chewing tobacco nicotine dependence Does not use illicit drugs occasional alcohol consumption What is your current living situation?: I presently have a place to live Problems where you live: no known problems Problems where you live details: na In the past 12 months, utilities in danger of being shut off: no In the past 12 mos, have been you worried that your food would run out before you had money to buy more?: never true In the past 12 mos, the food you bought just didn't last and you didn't have money to buy more?: never true Highest level of school completed/degree received: Associate degree: occupational, technical, vocational program Smoking Status: Never smoker Do you use any of these nicotine containing products: Smokeless Tobacco Second hand tobacco smoke exposure: No How often do you have a drink containing alcohol: 2-4 times a month How many standard drinks containing alcohol do you have on a typical day: 1 or 2 How often do you have six or more drinks on one occasion: Never AUDIT-C Alcohol total score: 2 Non-prescribed substance use: denies use How often does anyone, including family, friends and others, physically hurt you : never How often does anyone, including family, friends and others, insult or talk down to you: never How often does anyone, including family, friends and others, threaten you with harm: never How often does anyone, including family, friends and others, scream or curse at you: never service: No Meds Home Medications and Allergies Home Medications ?Medication ?Instructions ?Recorded ?Confirmed ?Type fluticasone furoate 27.5 2 spray intranasal DAILY PRN 10/21/21 01/30/24 History mcg/actuation nasal spray,suspension (Flonase Sensimist) valacyclovir 1 gram tablet 2,000 mg PO BID PRN 01/30/24 01/30/24 History (Valtrex) Allergies Allergy/AdvReac Type Severity Reaction Status Date / Time ragweed pollen Allergy Mild RUNNY NOSE Verified 01/30/24 13:51 penicillin V Allergy Unknown CHILDHOOD Verified 01/30/24 13:51 - UNSURE OF REACTION Exam Const: Vital Signs, click to edit/add: Vital Signs - 24 hr 01/30/24 08:45 01/30/24 13:48 01/30/24 14:36 Temperature 98.9 F 98.3 F 98.9 F Pulse Rate [Pulse Oximeter] 89 Pulse Rate [Right Radial] 94 94 Respiratory Rate 16 20 20 Blood Pressure [Le ft Upper Arm] 133/86 Blood Pressure [Ri ght Arm] 111/74 133/86 Pulse Oximetry 95 95 95 Oxygen Delivery Me thod Room Air Room Air Room Air 01/30/24 14:50 Temperature Pulse Rate [Pulse Oximeter] Pulse Rate [Right Radial] Respiratory Rate 20 Blood Pressure [Le ft Upper Arm] Blood Pressure [Ri ght Arm] Pulse Oximetry 95 Oxygen Delivery Me thod Room Air Hospitalist - H&P: Result Labs Labs: Short CBC 01/30/24 Range/Units 09:35 WBC 16.43 H (4.50-11.00) K/uL Hgb 15.7 (13.5-17.5) gm/dL Hct 47.6 (37.0-53.0) % Plt Count 121 L (140-440) K/uL BMP 01/30/24 09:35 Sodium 133 L Potassium 4.2 Chloride 102 Carbon Dioxide 24 BUN 13 Creatinine 0.8 Glucose 194 H Calcium 9.0 Liver Function 01/30/24 Range/Units 09:35 Total Bilirubin 2.0 H (0.1-1.5) mg/dL Direct Bilirubin 0.4 (0.0-0.5) mg/dL AST 31 (12-35) U/L ALT 32 (4-50) U/L Alkaline Phosphatase 78 (40-150) U/L Albumin 3.9 (3.3-5.0) g/dL Assessment and Plan Assessment and plan (1) Acute cholecystitis due to biliary calculus: Problem comment: -total bilirubin elevated. fat stranding and elevated WBC. mildly clinically dehydrated. Needs IV antibiotics, IV fluids, IV pain management. -Rocephin/Flagyl -monitor for sepsis -gen surg consult -NPO after midnight for possible lap idmas tomorrow Status: Acute (2) Prediabetes: Problem comment: A1C 6.1 continue to encourage therapeutic diet and exercise. Status: Acute (3) Chews tobacco regularly: Status: Acute
[2024-01-30 15:07] LABS: Hemoglobin A1C* 6.1 % (0-5.6)
[2024-01-30 15:27] LABS: Gamma Glutamyl Transpeptidase* 70 U/L (8-55)
[2024-01-30] MEDS: LACTATED RINGERS 1000 ML 1,000 ML 125 ML IV (16:01)
[2024-01-30] MEDS: cefTRIAXone 2 GM in 0.9 % SODIUM CHLORIDE Mini-bag 100 ML IVPB (18:12)
[2024-01-30] MEDS: metroNIDAZOLE 500 MG/100 ML PIGGYBACK 100 MG IVPB (19:19)
[2024-01-30] MEDS: KETOROLAC 15 MG/ML inj 30 MG IVP (20:02)
[2024-01-31] VITALS (24 sets, daily range): BP systolic 84–131; BP diastolic 61–83; PULSE 80–114; RESP 12–20; TEMP 36.5–39.4; O2SAT 91–97
[2024-01-31] MEDS: MORPHINE 4 MG/ML INJ IVP ×2 (03:07→06:07)
[2024-01-31] MEDS: metroNIDAZOLE 500 MG/100 ML PIGGYBACK 100 MG IVPB ×2 (03:12→19:30)
[2024-01-31] MEDS: LACTATED RINGERS 1000 ML 1,000 ML 125 ML IV ×2 (03:12→10:00)
[2024-01-31] MEDS: ACETAMINOPHEN 325 MG TABLET PO (03:47)
--- NOTE | 2024-01-31 07:00 | PC.NURSE ---
Addendum entered by Ally Win RN 01/31/24 07:35: Pt has been refusing SCDs and gripper socks this shift despite education provided. Original Note: End of shift note [id number]: Pt A&Ox4 and able to make needs known. He is able to transfer/ambulate independently in room and refused SCDs this shift despite education. Pt noted to have fever of 103 after 0300 when routine VS checked. [employer] called MD Roseanne Cazares to provide update of fever of 103 and tachycardia of 114 with 0300 VS. PRN Tylenol administered after being approved by . Temp 99.2 upon followup. Pt has been NPO since midnight. PRN Morphine and Toradol administered for pain control. Pt reported RUQ abdominal pain as 4-6/10 throughout the shift. ?
--- NOTE | 2024-01-31 07:05 | P.GSCN_ITS ---
History of Present Illness Consult details Date Seen: 01/31/24 Consult date: 01/31/24 Narrative: Patient is a 63-year-old male who presented to the emergency department with 3 days abdominal pain. It came on after he lunch on Sunday. It is most severe on the right side. He has never had pain like this before. For the last 2 days he has been able to keep down liquids but overall had a decrease in appetite. He tried Tums without relief. Tylenol has been working with some pain improvement, but the pain never goes away. No significant nausea. He continues to pass gas and have bowel movements. He does have a history of diverticulitis, but this pain is in a different location. He has never had abdominal surgery before. Review of Systems Status of ROS: Reports: 10 or more systems reviewed and unremarkable except as noted in History and below [facility] Medical History (Updated 01/30/24 @ 17:27 by Viktoriya Bernal MD) Chews tobacco regularly ?Z72.0 - Tobacco use (ICD-10) Seasonal allergic rhinitis (09/17/09) ?J30.2 - Other seasonal allergic rhinitis (ICD-10) Rosacea (09/17/09) ?L71.9 - Rosacea, unspecified (ICD-10) HSV-1 (herpes simplex virus 1) infection ?B00.9 - Herpesviral infection, unspecified (ICD-10) Surgical History History of repair of rotator cuff ?Z98.890 - Other specified postprocedural states (ICD-10) History of left inguinal hernia repair ?Z98.890 - Other specified postprocedural states (ICD-10) ?Z87.19 - Personal history of other diseases of the digestive system (ICD-10) History of colonoscopy with polypectomy ?Z98.890 - Other specified postprocedural states (ICD-10) ?Z86.010 - Personal history of colonic polyps (ICD-10) Family History Brother Cerebral aneurysm Liver cancer Myocardial infarction Sister Cerebral aneurysm Social History Narrative: Chewing tobacco nicotine dependence Does not use illicit drugs occasional alcohol consumption What is your current living situation?: I presently have a place to live Problems where you live: no known problems Problems where you live details: na In the past 12 months, utilities in danger of being shut off: no In the past 12 mos, have been you worried that your food would run out before you had money to buy more?: never true In the past 12 mos, the food you bought just didn't last and you didn't have money to buy more?: never true Highest level of school completed/degree received: Associate degree: occupational, technical, vocational program Smoking Status: Never smoker Do you use any of these nicotine containing products: Smokeless Tobacco Second hand tobacco smoke exposure: No How often do you have a drink containing alcohol: 2-4 times a month How many standard drinks containing alcohol do you have on a typical day: 1 or 2 How often do you have six or more drinks on one occasion: Never AUDIT-C Alcohol total score: 2 Non-prescribed substance use: denies use How often does anyone, including family, friends and others, physically hurt you : never How often does anyone, including family, friends and others, insult or talk down to you: never How often does anyone, including family, friends and others, threaten you with harm: never How often does anyone, including family, friends and others, scream or curse at you: never service: No Meds Home Medications and Allergies Home Medications ?Medication ?Instructions ?Recorded ?Confirmed ?Type fluticasone furoate 27.5 2 spray intranasal DAILY PRN 10/21/21 01/30/24 History mcg/actuation nasal spray,suspension (Flonase Sensimist) valacyclovir 1 gram tablet 2,000 mg PO BID PRN 01/30/24 01/30/24 History (Valtrex) Allergies Allergy/AdvReac Type Severity Reaction Status Date / Time ragweed pollen Allergy Mild RUNNY NOSE Verified 01/30/24 13:51 penicillin V Allergy Unknown CHILDHOOD Verified 01/30/24 13:51 - UNSURE OF REACTION Exam Narrative: Exam Narrative: General: Alert and oriented, no acute distress Respiratory: Equal breath rise bilaterally, maintained on room air CV: Tachycardic Abdomen: Soft, tender to palpation with guarding and rebound in the right upper quadrant. Const: Vital Signs, click to edit/add: Vital Signs - 24 hr 01/30/24 08:45 01/30/24 13:48 01/30/24 14:36 Temperature 98.9 F 98.3 F 98.9 F Pulse Rate [Pulse Oximeter] 89 Pulse Rate [Right Radial] 94 94 Respiratory Rate 16 20 20 Blood Pressure [Le ft Upper Arm] 133/86 Blood Pressure [Ri ght Arm] 111/74 133/86 Pulse Oximetry 95 95 95 Oxygen Delivery Me thod Room Air Room Air Room Air 01/30/24 14:50 01/30/24 19:55 01/30/24 23:00 Temperature 98.5 F Pulse Rate [Pulse Oximeter] Pulse Rate [Right Radial] 100 99 Respiratory Rate 20 16 16 Blood Pressure [Le ft Upper Arm] Blood Pressure [Ri ght Arm] 128/87 Pulse Oximetry 95 96 Oxygen Delivery Me thod Room Air Room Air 01/30/24 23:37 01/31/24 03:30 01/31/24 03:47 Temperature 98.0 F 103 F H 103 F H Pulse Rate [Pulse Oximeter] Pulse Rate [Right Radial] 99 114 H Respiratory Rate 16 20 Blood Pressure [Le ft Upper Arm] Blood Pressure [Ri ght Arm] 106/72 131/80 Pulse Oximetry 94 91 Oxygen Delivery Me thod Room Air Room Air 01/31/24 06:00 Temperature 99.2 F Pulse Rate [Pulse Oximeter] Pulse Rate [Right Radial] Respiratory Rate Blood Pressure [Le ft Upper Arm] Blood Pressure [Ri ght Arm] Pulse Oximetry Oxygen Delivery Me thod Results Labs Labs: Abnormal lab results 01/30/24 Range/Units 09:35 WBC 16.43 H (4.50-11.00) K/uL Plt Count 121 L (140-440) K/uL Neut % (Auto) 90.9 H (42.0-72.0) % Lymph % (Auto) 2.3 L (20-44) % Neut # (Auto) 14.90 H (1.7-7.0) K/uL Lymph # (Auto) 0.40 L (0.90-2.90) K/uL [place] # (Auto) 1.00 H (0.00-0.90) K/UL Sodium 133 L (135-149) mmol/L Glucose 194 H (60-115) mg/dL Hemoglobin A1c 6.1 H (0-5.6) % Total Bilirubin 2.0 H (0.1-1.5) mg/dL GGT 70 H (8-55) U/L C-Reactive Protein 24.3 H (0.5-1.0) mg/dL Lipase 22 L (23-300) U/L Diabetes panel 01/30/24 Range/Units 09:35 Sodium 133 L (135-149) mmol/L Potassium 4.2 (3.6-5.1) mmol/L Chloride 102 (96-114) mmol/L Carbon Dioxide 24 (20-32) mmol/L BUN 13 (7-30) mg/dL Creatinine 0.8 (0.5-1.5) mg/dL Glucose 194 H (60-115) mg/dL Hemoglobin A1c 6.1 H (0-5.6) % Calcium 9.0 (8.4-10.6) mg/dL AST 31 (12-35) U/L ALT 32 (4-50) U/L Alkaline Phosphatase 78 (40-150) U/L Total Protein 7.1 (6.0-8.3) g/dL Albumin 3.9 (3.3-5.0) g/dL Calcium panel 01/30/24 Range/Units 09:35 Calcium 9.0 (8.4-10.6) mg/dL Albumin 3.9 (3.3-5.0) g/dL Pituitary panel 01/30/24 Range/Units 09:35 Sodium 133 L (135-149) mmol/L Potassium 4.2 (3.6-5.1) mmol/L Chloride 102 (96-114) mmol/L Carbon Dioxide 24 (20-32) mmol/L BUN 13 (7-30) mg/dL Creatinine 0.8 (0.5-1.5) mg/dL Glucose 194 H (60-115) mg/dL Calcium 9.0 (8.4-10.6) mg/dL Adrenal panel 01/30/24 Range/Units 09:35 Sodium 133 L (135-149) mmol/L Potassium 4.2 (3.6-5.1) mmol/L Chloride 102 (96-114) mmol/L Carbon Dioxide 24 (20-32) mmol/L BUN 13 (7-30) mg/dL Creatinine 0.8 (0.5-1.5) mg/dL Glucose 194 H (60-115) mg/dL Calcium 9.0 (8.4-10.6) mg/dL Total Bilirubin 2.0 H (0.1-1.5) mg/dL AST 31 (12-35) U/L ALT 32 (4-50) U/L Alkaline Phosphatase 78 (40-150) U/L Total Protein 7.1 (6.0-8.3) g/dL Albumin 3.9 (3.3-5.0) g/dL All other labs normal. Imaging Abdomen CT scan report/results: report reviewed and image reviewed Abdominal ultrasound report/results: report reviewed and image reviewed Progress Note:A&P Assessment and plan (1) Acute cholecystitis due to biliary calculus: Status: Acute Assessment and Plan: Patient is a 63-year-old male who presents with 4 days worsening right upper quadrant abdominal pain. Clinical workup in symptoms are consistent with acute cholecystitis. Since admission patient has been started on IV antibiotics. He did spike a temperature (103) early this morning and is now tachycardic. Evidence of peritonitis in the right upper quadrant. He presented with a leukocytosis (16) and CRP elevation (23). Labs are pending this morning. CT scan does demonstrate significant amount of surrounding inflammation of the gallbladder. Ultrasound demonstrates gallbladder wall thickening and pericholecystic fluid. I had a detailed conversation with the patient regarding the diagnosis of acute cholecystitis. We discussed the treatment options including observation with diet modification and laparoscopic cholecystectomy. We discussed the risks of surgery (including but not limited to) the risks of bleeding, infection, injury to other structures in the abdomen including bile duct injury, bile leak and c onversion to an open operation. Patient does have a significant amount of inflammation on imaging with now signs of sepsis. I did discuss with the patient that this increases the likelihood of needing to convert to an open operation and/or the placement of a drain. We discussed the possibility that the patient's pain not improve with surgery. We discussed the possibility of permanent post-operative diarrhea that may require medical management. Additionally, the conceivably of complications requiring additional surgery or further hospitalization were also discussed including the risks of [place], respiratory failure, stroke and blood clots. The patient voiced an understanding of our conversation, had the opportunity to ask questions, agreed to accept the risks of surgery and asked that we proceed with surgery.
[2024-01-31 07:17] LABS: Hematocrit 42.4 % (37.0-53.0); Hemoglobin* 13.9 gm/dL (13.5-17.5); Mean Corpuscular HGB Conc 33 gm/dL (32-36); Mean Corpuscular Hemoglobin 31 pg (26-34); Mean Corpuscular Volume 95 fL (80-100); Platelet Count* 109 K/uL (140-440); Red Blood Count 4.46 m/uL (4.30-5.90); Slide Review Reflex No
[2024-01-31 07:23] LABS: Albumin* 2.8 g/dL (3.3-5.0); Chloride* 108 mmol/L (96-114)
[2024-01-31 07:24] LABS: Potassium* 3.6 mmol/L (3.6-5.1); Sodium* 135 mmol/L (135-149)
[2024-01-31 07:26] LABS: Alanine Aminotransferase* 35 U/L (4-50); Alkaline Phosphatase* 90 U/L (40-150); Anion Gap 5 mEq/L (7-15); Aspartate Amino Transferase* 36 U/L (12-35); Bilirubin Total* 1.2 mg/dL (0.1-1.5); Blood Urea Nitrogen* 18 mg/dL (7-30); Carbon Dioxide* 22 mmol/L (20-32); Creatinine* 0.8 mg/dL (0.5-1.5); Est. Creatinine Clearance* 77.06; Estimated Glomerular Filt Rate 99 ml/min; Total Protein* 5.4 g/dL (6.0-8.3)
[2024-01-31 07:27] LABS: Calcium* 7.9 mg/dL (8.4-10.6); Cholesterol* 115 mg/dL (90-199); Glucose* 107 mg/dL (60-115); HDL Cholesterol* 39 mg/dL (>=40); LDL Cholesterol Calculated 64 mg/dL (<100); Triglycerides* 59 mg/dL (40-149)
[2024-01-31 07:38] LABS: INR 1.18 (0.91-1.10); Prothrombin Time 15.7 Seconds
--- NOTE | 2024-01-31 07:58 | SUR.OPER ---
PATIENT QUESTIONS ANSWERED SATISFACTORILY PREOPERATIVELY. PATIENT BROUGHT TO OR #1 PER MED/SURG BED. Patient positioned supine on OR #1 bed. The perioperative team supported arms bilaterally on arm boards. Final approval of positioning by surgeon.
[2024-01-31 08:08] LABS: C Reactive Protein* 28.4 mg/dL (0.5-1.0)
[2024-01-31] MEDS: BUPIVACAINE 0.5% 30 ML INJECTION (08:13)
--- NOTE | 2024-01-31 11:05 | P.GSOP_ITS ---
Operative Note Date of procedure: 01/31/24 Pre-op diagnosis: Acute Cholecystitis Post-op diagnosis: Same Type of Procedure: Laparoscopic cholecystectomy Indications: Patient is a 63-year-old male who presented to the emergency department with right upper quadrant abdominal pain. Clinical workup and symptoms were consistent with acute cholecystitis. Risks and benefits of operative intervention were discussed at length with the patient. Risks included but was not limited to: Bleeding, infection, risk of damage to surrounding structures, possible need for additional procedures, possible need to convert to an open operation and postoperative complications such as pneumonia, pulmonary emboli or MS. All questions and concerns were addressed with the patient agreeing to proceed. Procedure Description: After discussing the risks and benefits of the procedure, the patient signed informed consent.? The operative site was marked and the patient was brought to the operating room and placed on the operating table in supine position.? Care was taken to pad the patient's pressure points.?? The patient was then intubated by anesthesia.?? The operative site was then prepped and draped in the usual sterile fashion.? A time-out was then performed. Entrance to the abdomen was gained via a 5 mm Visiport in the left upper quadrant. The abdomen was insufflated and briefly surveyed for signs of injury. There was none. 11 mm umbilical port was placed as well as 2 working ports along the right costal margin. Patient was then placed in reverse Trendelenburg position with the right side up. Inflamed omentum was adherent onto the edge of the liver. There was evidence of murky fluid behind the liver bed and within the right pericolic gutter. Using blunt dissection and cautery the omentum was peeled off of the liver edge. A small tear in the liver capsule was created during this dissection. Hemostasis was assured with electrocautery. The gallbladder fundus was identified and appeared necrotic, but not perforated. Using a laparoscopic needle 60 mL of dark bilious fluid was removed and sent for culture. The fundus was then grasped and retracted cephalad. Dissection of the omentum off of the gallbladder was continued towards the infundibulum. A large amount of dissection was needed to free omental adhesions from the gallbladder. Once this was completed the infundibulum was grasped. A combination of hook cautery and blunt dissection was used to carefully dissect out the cystic duct and artery until they could clearly be seen entering the gallbladder without any intervening structures. This portion of the procedure was made difficult secondary to the edematous and inflamed tissue. The cystic artery was identified on the body of the gallbladder, the right hepatic artery was very close to the cystic duct and present near the node of [place]. The artery feeding the node was clipped and the node dissected away. This allowed the hepatic artery to be dissected free from the cystic duct and away from the operative field. The gallbladder was dissected off the cystic plate to achieve the critical view. Due to the friability of the gallbladder wall a small tear was made in the body of the gallbladder with spillage of stones and bile. Despite this difficulty the critical view was achieved with the cystic duct and artery each clipped with 2 clips proximally and 1 clip distally and transected with the scissors. The gallbladder was then taken off of the liver bed and removed from the abdomen using an Endo-Catch bag. During dissection off of the gallbladder fossa the posterior wall of the gallbladder wall was very necrotic in appearance and friable. All large stones were removed from the abdomen through the Endo-Catch bag. The gallbladder bed was then surveyed for hemostasis, which was excellent. The bile that remained in the abdomen was suc tioned and the abdomen irrigated with saline. The umbilical port fascia was closed with 2 interrupted 0 Vicryl stitches via the Jacob-Pal. A 15 [place] drain was placed through the right upper quadrant port site within the gallbladder fossa. All of the remaining ports were then removed under direct vision. The skin was closed with absorbable subcuticular suture. Instrument sponge and needle counts were correct at the end of the case. The patient was then woken and transferred to the PACU in stable condition. Findings: Necrotic gallbladder, peritonitis. Anesthesia: GETA Surgeon: Roseanne Cazares MD Estimated blood loss (mL): 200 Specimen: Gallbladder Condition: stable Disposition: PACU
--- NOTE | 2024-01-31 11:31 | SUR.PHASEI ---
patient met discharge criteria per anesthesia
--- NOTE | 2024-01-31 11:39 | W.ANESCHARGE ---
Anesthesia Charges Start Date/Time Anesthesia Start Date: 01/31/24 Anesthesia Start Time: 07:28 Stop Date/Time Anesthesia Stop Date: 01/31/24 Anesthesia Stop Time: 10:54 Summary Emergency: MDA
[2024-01-31] MEDS: HYDROmorphone 0.5 mg/0.5 ml inj IVP (12:00)
[2024-01-31] MEDS: KETOROLAC 15 MG/ML inj 30 MG IVP ×2 (12:56→20:32)
[2024-01-31] MEDS: 0.9 % SODIUM CHLORIDE 250 ml 250 ML IV (13:53)
--- NOTE | 2024-01-31 13:58 | PM.IMPN1 ---
Progress Note: A&P Assessment and plan (1) Acute cholecystitis due to biliary calculus: Problem details: -total bilirubin elevated. fat stranding and elevated WBC. mildly clinically dehydrated. Needs IV antibiotics, IV fluids, IV pain management. -Rocephin/Flagyl -monitor for sepsis -gen surg consult -NPO after midnight for possible lap dimas tomorrow Status: Acute (2) Prediabetes: Problem details: A1C 6.1 continue to encourage therapeutic diet and exercise. Status: Acute (3) Chews tobacco regularly: Problem details: Pre contemplative about tobacco cessation Status: Acute Plan 1. Hospitalist service will step back and allow General surgery to carry on as primary for this patient. 2. Hospitalist service will be available to support patient if of General surgery desires. Time Spent With Patient Total time spent: 30 minutes Subjective Date Seen: 01/31/24 Interval history: Hospital day 2. I saw and examined the patient early this morning before surgery and after he came back from surgery. Prior to surgery is condition was not improving and felt like it was even getting worse. Since surgery feels much improved. Denies nausea or vomiting. Abdominal pain is much improved. Exam Narrative: Exam Narrative: Prior to surgery he appeared uncomfortable. Lungs clear to auscultation. Heart tones tachycardic with regular rhythm. Abdomen with bowel sounds but tender and rebound particularly in the right upper quadrant. No focal motor neurologic deficits. Postoperatively he appears comfortable. Lungs remain clear to auscultation. Heart tones no longer tachycardic with regular rhythm. Abdomen with active bowel sounds, soft. No focal motor neurologic deficits. Const: Vital Signs, click to edit/add: Vital Signs - 24 hr 01/30/24 14:36 01/30/24 14:50 01/30/24 19:55 Temperature 98.9 F 98.5 F Pulse Rate Pulse Rate [Right Radial] 94 100 Respiratory Rate 20 20 16 Blood Pressure Blood Pressure [Ri ght Arm] 133/86 128/87 Pulse Oximetry 95 95 96 Oxygen Delivery Me thod Room Air Room Air Room Air 01/30/24 23:00 01/30/24 23:37 01/31/24 03:30 Temperature 98.0 F 103 F H Pulse Rate Pulse Rate [Right Radial] 99 99 114 H Respiratory Rate 16 16 20 Blood Pressure Blood Pressure [Ri ght Arm] 106/72 131/80 Pulse Oximetry 94 91 Oxygen Delivery Me thod Room Air Room Air 01/31/24 03:47 01/31/24 06:00 01/31/24 06:05 Temperature 103 F H 99.2 F 99.2 F Pulse Rate Pulse Rate [Right Radial] Respiratory Rate Blood Pressure Blood Pressure [Ri ght Arm] Pulse Oximetry Oxygen Delivery Me thod 01/31/24 10:50 01/31/24 10:55 01/31/24 11:00 Temperature 98.2 F 98.2 F 98.2 F Pulse Rate 102 H 99 98 Pulse Rate [Right Radial] Respiratory Rate 13 16 16 Blood Pressure 117/83 101/69 98/61 Blood Pressure [Ri ght Arm] Pulse Oximetry 93 93 93 Oxygen Delivery Me thod Room Air Room Air Room Air 01/31/24 11:05 01/31/24 11:10 01/31/24 11:15 Temperature 98.2 F 98.2 F 98.2 F Pulse Rate 96 96 93 Pulse Rate [Right Radial] Respiratory Rate 18 14 15 Blood Pressure 94/74 99/68 100/67 Blood Pressure [Ri ght Arm] Pulse Oximetry 92 94 97 Oxygen Delivery Me thod Room Air Room Air Room Air 01/31/24 11:20 01/31/24 11:27 Temperature 97.7 F 98.3 F Pulse Rate 93 92 Pulse Rate [Right Radial] Respiratory Rate 12 Blood Pressure 97/66 97/68 Blood Pressure [Ri ght Arm] Pulse Oximetry 96 93 Oxygen Delivery Me thod Room Air Room Air Labs Labs: Laboratory Results - last 24 hr 01/30/24 01/30/24 01/31/24 09:35 14:19 06:17 WBC 10.00 RBC 4.46 Hgb 13.9 Hct 42.4 MCV 95 MCH 31 MCHC 33 Plt Count 109 L INR 1.18 H Sodium 135 Potassium 3.6 Chloride 108 Carbon Dioxide 22 Anion Gap 5 L BUN 18 Creatinine 0.8 Estimated Creat Clear 77.06 Estimated GFR 99 Glucose 107 Hemoglobin A1c 6.1 H Calcium 7.9 L Total Bilirubin 1.2 Direct Bilirubin 0.0 GGT 70 H AST 36 H ALT 35 Alkaline Phosphatase 90 C-Reactive Protein 28.4 H Total Protein 5.4 L Albumin 2.8 L Triglycerides 59 Cholesterol 115 LDL Cholesterol, Calc 64 HDL Cholesterol 39 L Lab Acknowledgement Test Added
[2024-01-31] MEDS: cefTRIAXone 2 GM in 0.9 % SODIUM CHLORIDE Mini-bag 100 ML IVPB (18:32)
--- NOTE | 2024-01-31 19:35 | PC.NURSE ---
Addendum entered by Sonali David RN 01/31/24 19:43: Pt has not voided since arriving from PACU. Pt does not feel the need to void. Bladder scan shows 350ml. Discussed straight cath but pt hesitant. [employer] discussed tips such as warm wash cloth, blowing bubbles in straw, and turning water on. Reported this to oncoming nurse Original Note: Nursing Care Hours: [id number] Pt this shift taken to surgery at shift change. Arrived from PACU at 1130, drowsy but responsive. Pain treated per eMAR and ice pack. BS absent initially and then hypoactive at end of shift. Pt hypotensive and at one point was symptomatic. Small 250ml bolus infused and effective. Pt up with SB assist in the ramachandran, tolerated well, no dizziness or lightheadedness. Pt is now independent in room and has walked ramachandran x3. Advanced diet to regular, tolerating well, no increase pain or nausea. DESTIN drain stripped and emptied x3, see I&O. IV was tender at start of ABX infusion, but was relieved with redressing and pulling back catheter slightly. Pt asked about using morphine at night for sleep. Discussed with pt what morphine and pain medications are used for and what options we have for sleep aids.
[2024-01-31] MEDS: MELATONIN 3 MG TABLET PO (20:32)
[2024-02-01 00:30] VITALS: BP 111/71; PULSE 74; RESP 16; TEMP 36.4; O2SAT 97
[2024-02-01] MEDS: metroNIDAZOLE 500 MG/100 ML PIGGYBACK 100 MG IVPB (03:32)
[2024-02-01 03:40] VITALS: BP 109/78; PULSE 66; RESP 16; TEMP 37; O2SAT 94
[2024-02-01] MEDS: ACETAMINOPHEN 325 MG TABLET PO (04:54)
[2024-02-01 07:00] VITALS: BP 117/82; PULSE 75; RESP 16; TEMP 36.8; O2SAT 95
--- NOTE | 2024-02-01 07:10 | PC.NURSE ---
END OF SHIFT NOTE: PT PLEASANT AND COOPERATIVE. A&O. DENIES CP, SOB, N/V. AMBULATES INDEPENDENTLY WITHIN ROOM. VSS ON RA; AFEBRILE. REPORTS PAIN TO RUQ OF ABD 1-4/10 WITH RELIEF FROM REST AND PAIN RELIEVER (SEE EMAR). DESTIN WITH SEROSANGUINEOUS OUTPUT. LAP SITES CDI. PT ENCOURAGED TO SPLINT WITH PILLOW WHEN GETTING UP; PT NEEDS REMINDERS. PT IV LEAKING, BUT PATENT. VOIDING APPROPRIATELY. CALL LIGHT WITHIN PT?S REACH.
[2024-02-01] MEDS: HYDROmorphone 0.5 mg/0.5 ml inj IVP (09:17)
--- NOTE | 2024-02-01 09:30 | PM.DS1 ---
DS: Providers Provider Date Seen: 02/01/24 Date of admission: 01/30/24 14:13 Primary care physician: Samia Beckham PA-C Admitting Clinician: Foreign Steele MD Attending Physician on discharge: Viktoriya Bernal MD DS: Summary Hospital Course Hospital Course: Patient was admitted from the emergency department with right upper quadrant abdominal pain for several days. Clinical workup was consistent with acute cholecystitis. He was started on IV antibiotics. While awaiting surgery he developed high-grade fever and tachycardia. He was taken urgently to the operating room for laparoscopic cholecystectomy. Evidence of severe acute cholecystitis with a significant amount of surrounding inflammation and necrosis of the gallbladder. Gallbladder was able to be removed laparoscopically and a drain left in place. Postoperatively he was continued on antibiotics for 24 hours. Prior to leaving the hospital his drain was removed. Very minimal serous output. At the time of discharge he was tolerating a regular diet, pain was well controlled, voiding and ambulating independently. Time Spent with Patient Time attestation: Total time spent providing and/or coordinating discharge services: Exam Narrative: Exam Narrative: General: Alert and oriented, no acute distress Respiratory: Equal breath rise bilaterally, maintained on room air CV: Well perfused Abdomen: Soft, appropriately tender over incisions. Steri-Strips in place clean/dry/intact. Drain with minimal serous output. Const: Vital Signs, click to edit/add: Vital Signs - 24 hr 01/31/24 10:50 01/31/24 10:55 01/31/24 11:00 Temperature 98.2 F 98.2 F 98.2 F Pulse Rate 102 H 99 98 Pulse Rate [Pulse Oximeter] Pulse Rate [Right Radial] Respiratory Rate 13 16 16 Blood Pressure 117/83 101/69 98/61 Blood Pressure [Ri ght Arm] Pulse Oximetry 93 93 93 Oxygen Delivery Me thod Room Air Room Air Room Air 01/31/24 11:05 01/31/24 11:10 01/31/24 11:15 Temperature 98.2 F 98.2 F 98.2 F Pulse Rate 96 96 93 Pulse Rate [Pulse Oximeter] Pulse Rate [Right Radial] Respiratory Rate 18 14 15 Blood Pressure 94/74 99/68 100/67 Blood Pressure [Ri ght Arm] Pulse Oximetry 92 94 97 Oxygen Delivery Me thod Room Air Room Air Room Air 01/31/24 11:20 01/31/24 11:27 01/31/24 11:30 Temperature 97.7 F 98.3 F Pulse Rate 93 92 85 Pulse Rate [Pulse Oximeter] Pulse Rate [Right Radial] Respiratory Rate 12 20 Blood Pressure 97/66 97/68 101/66 Blood Pressure [Ri ght Arm] Pulse Oximetry 96 93 91 Oxygen Delivery Me thod Room Air Room Air Room Air 01/31/24 11:45 01/31/24 12:00 01/31/24 12:15 Temperature 98.3 F Pulse Rate 81 92 84 Pulse Rate [Pulse Oximeter] Pulse Rate [Right Radial] Respiratory Rate 20 Blood Pressure 102/69 96/68 94/61 Blood Pressure [Ri ght Arm] Pulse Oximetry 93 91 91 Oxygen Delivery Me thod Room Air Room Air Room Air 01/31/24 12:30 01/31/24 13:00 01/31/24 14:00 Temperature 98.6 F 98.8 F 98.8 F Pulse Rate 87 92 84 Pulse Rate [Pulse Oximeter] Pulse Rate [Right Radial] Respiratory Rate 18 Blood Pressure 95/70 84/67 L 97/66 Blood Pressure [Ri ght Arm] Pulse Oximetry 93 92 97 Oxygen Delivery Me thod Room Air Room Air Room Air 01/31/24 15:00 01/31/24 15:00 01/31/24 16:00 Temperature Pulse Rate 85 88 Pulse Rate [Pulse Oximeter] Pulse Rate [Right Radial] 85 Respiratory Rate Blood Pressure 84/70 L 92/62 Blood Pressure [Ri ght Arm] Pulse Oximetry 95 Oxygen Delivery Me thod Room Air Room Air 01/31/24 17:00 01/31/24 19:37 01/31/24 20:32 Temperature 98.4 F 98.4 F Pulse Rate 85 Pulse Rate [Pulse Oximeter] Pulse Rate [Right Radial] 80 Respiratory Rate 16 16 Blood Pressure 102/66 Blood Pressure [Ri ght Arm] 113/73 Pulse Oximetry 96 97 Oxygen Delivery Me thod Room Air Room Air 02/01/24 00:30 02/01/24 00:30 02/01/24 03:40 Temperature 97.5 F L 98.6 F Pulse Rate Pulse Rate [Pulse Oximeter] 74 66 Pulse Rate [Right Radial] 74 Respiratory Rate 16 16 16 Blood Pressure Blood Pressure [Ri ght Arm] 111/71 109/78 Pulse Oximetry 97 94 Oxygen Delivery Me thod Room Air Room Air 02/01/24 07:00 Temperature 98.3 F Pulse Rate Pulse Rate [Pulse Oximeter] 75 Pulse Rate [Right Radial] Respiratory Rate 16 Blood Pressure Blood Pressure [Ri ght Arm] 117/82 Pulse Oximetry 95 Oxygen Delivery Me thod Room Air DS: Data Data Completed and Pending Labs on day of discharge: Preliminary micro results at discharge 01/31/24 10:30 Aerobic Culture - Preliminary Gallbladder Fluid Culture in Progress Anaerobic Culture - Preliminary Culture in Progress Discharge Plan Discharge Disposition: Home, Self-Care Date of Admission: 01/30/24 14:13 Attending Provider on Discharge: Roseanne Cazares Primary Care Provider: Samia Beckham Condition: Stable Anticipated Discharge Date/Time: 02/01/24 09:23 Discharge Medications: New hydrocodone-acetaminophen 5-325 mg tablet 1 tab PO Q6H PRN (Reason: pain) Qty: 20 0RF senna 8.6 mg capsule 8.6 mg PO DAILY PRN (Reason: constipation) Qty: 90 0RF Continued Flonase Sensimist 27.5 mcg/actuation spray,suspension 2 spray intranasal DAILY PRN Rx Instructions: PRN RAGWEED SEASON valacyclovir [Valtrex] 1 gram tablet 2,000 mg PO BID PRN Rx Instructions: 2grams twice daily for 1 day for onset of cold sores Discharge Orders: Discharge Order (Routine); Ordered 02/01/24 Ordered By: Roseanne Cazares Patient Education: General Anesthesia (DC), Laparoscopic Cholecystectomy (DC), Post-Operative Instructions: Laparoscopic Cholecystectomy Additional Instructions: You were prescribed a narcotic pain medication. In addition you may supplement with Tylenol and/or ibuprofen. Be sure to not exceed greater than 4 g of Tylenol in a 24 hour period. While on narcotic pain medicine please take stool softeners. A prescription of stool softeners has been sent to the pharmacy. Stop if having greater than 2 stools per day. You have Steri-Strips dressings in place, allow these to fall off on their own. Okay to shower starting tomorrow. Do not soak in a bath or swim for 2 weeks. Follow-up with Dr. Cazares in 2-3 weeks. Please call if you are experiencing severe pain, nausea, vomiting, difficulty urinating, fever or not had a bowel movement in 4 days after surgery. Activity Level: No strenuous activity Activity Detail: Activity as tolerated. Avoid strenuous activity. No lifting greater than 20 lb for 2 weeks. Discharge Diet: Low Fat/Low Cholesterol Follow Up Appointments: Roseanne Cazares MD [Staff Physician] - (Two week follow-up) Samia Beckham PA-C [Primary Care Provider] - Forms: [employer] Info Instructions
--- NOTE | 2024-02-01 10:47 | PC.NURSE ---
DC: Pt alert, oriented and vitally stable. Pt has 3 lap sites with steri strips, scant blood and minor bruising surrounding these sites. Pt had a jatinder drain, draining serosanguinous fluid, removed by Dr. Cazares at bedside, band aid over site. During procedure pt had 10/10 pain, prn dilaudid given, pt stated improvement. IV removed, tip intact. Pt up independently in room, tolerates well. Pt on regular diet, tolerates well. Bowel sounds active. at bedside. DC information given to pt and , topics including medication, follow up and symptom worsening. DC home with at 10:45.?
== END 2024-02-01 10:45 | disposition home or self-care (01) | DRG 263 ==
LOC: ED 13:17 → MEDSURG 13:38
PROVIDERS: Surgery; Admitting Provider Family Medicine; Emergency Provider Family Medicine; PCP Physician Assistant Medical; Visit Provider Family Medicine
PROC: 0FT44ZZ Resection of Gallbladder, Percutaneous Endoscopic Approach (ICD-10-PCS; CPT 47562; principal; 2024-01-31 07:30)
DX: K80.00 Calculus of gallbladder with acute cholecystitis without obstruction (principal); K82.A1 Gangrene of gallbladder in cholecystitis; K65.3 Choleperitonitis; E86.0 Dehydration; R73.03 Prediabetes; Z72.0 Tobacco use
CPT/HCPCS: 00790; 36415; 74176; 76705; 80048; 80061; 80076; 81001; 82977; 83036; 83690; 85025; 85027; 85610; 86140; 87070; 87075; 87186; 87205; 88304; 93005; 99140; 99284; 99285; A9270; J0330; J0665; J0696; J1100; J1171; J1836; J1885; J2270; J2371; J2405; J2470; J2543; J2704; J2710; J3010; J7030; J7050; J7120

== ENCOUNTER 2024-02-05 20:42 | Emergency (ER) | payer BC, SELFPAY ==
[2024-02-05 20:57] VITALS: BP 112/69; PULSE 94; RESP 20; TEMP 38.4; O2SAT 95; BMI 24.4
[2024-02-05 21:16] LABS: Appearance Urine Clear (Clear); Bilirubin Urine Negative (Negative); Blood Urine Negative (Negative); Color Urine Yellow (Yellow); Glucose Urine Negative (Negative); Ketones Urine Negative (Negative); Leukocyte Esterase Urine Negative (Negative); Nitrite Urine Negative (Negative); Protein Urine 1+ (Negative); Specific Gravity Urine 1.025 (1.000-1.030); Urobilinogen Urine 0.2 (0.2-1.0); pH Urine 6.5 (5.0-8.5)
[2024-02-05 21:27] LABS: RBC Urine 0-2 (0-2); WBC Urine 0-2 (0-5)
[2024-02-05 21:34] VITALS: BP 114/73; PULSE 82; RESP 18; O2SAT 92
--- NOTE | 2024-02-05 21:42 | ED.FEVER ---
HPI - Fever General Chief Complaint: Fever Stated Complaint: surgery on past , has fever, gall bladder Time Seen by Provider: 02/05/24 20:49 History of Present Illness HPI Narrative: This 63-year-old male comes in with his because of fever status post cholecystectomy. He arrives here with a temperature 101.1? F. he had his gallbladder removed and was discharged from this hospital 4 days ago. He has been taking Tylenol and ibuprofen since then. His main symptom he reports is feeling hot and feverish which began today. He does not report any worsening pain and denies having any lightheadedness or shortness of breath. I did review discharge summary reports from the surgeon who indicated that the findings of cholecystitis were significant. The patient did have a drain in place until discharge from the hospital. Related Data Home Medications ?Medication ?Instructions ?Recorded ?Confirmed fluticasone furoate 27.5 2 spray intranasal DAILY PRN 10/21/21 01/30/24 mcg/actuation nasal spray,suspension (Flonase Sensimist) valacyclovir 1 gram tablet 2,000 mg PO BID PRN 01/30/24 01/30/24 (Valtrex) Previous Rx's ?Medication ?Instructions ?Recorded hydrocodone 5 mg-acetaminophen 325 1 tab PO Q6H PRN pain #20 tabs 02/01/24 mg tablet sennosides 8.6 mg capsule (senna) 8.6 mg PO DAILY PRN constipation 02/01/24 #90 caps Allergies Allergy/AdvReac Type Severity Reaction Status Date / Time ragweed pollen Allergy Mild RUNNY NOSE Verified 01/30/24 13:51 penicillin V Allergy Unknown CHILDHOOD Verified 01/30/24 13:51 - UNSURE OF REACTION Review of Systems Status of ROS Reports: 10 or more systems reviewed and unremarkable except as noted in History and below Narrative Constitutional: No weight gain or loss. Eyes: No discharge. No vision changes. HENT: No congestion, no sore throat, no ear pain. Cardiovascular: No chest pain, no palpitations. Respiratory: No shortness of breath, no wheezes, no cough. Gastrointestinal: Mild abdominal pain. Some loose stools status post cholecystectomy. Genitourinary: No dysuria, no hematuria. Musculoskeletal: Normal range of motion. Skin: No rashes, no pruritis. Neurological: No dizziness, weakness, sensory change, speech change. Endo/Heme/Allergies: No bruising or bleeding. No polydipsia. Pysch: no suicidality, no anxiety, no insomnia. All other systems reviewed and are negative. [facility] Medical History (Updated 02/05/24 @ 22:45 by Orlando Leon MD) Chews tobacco regularly ?Z72.0 - Tobacco use (ICD-10) Seasonal allergic rhinitis (09/17/09) ?J30.2 - Other seasonal allergic rhinitis (ICD-10) Rosacea (09/17/09) ?L71.9 - Rosacea, unspecified (ICD-10) HSV-1 (herpes simplex virus 1) infection ?B00.9 - Herpesviral infection, unspecified (ICD-10) Surgical History (Updated 02/04/24 @ 09:58 by Samia Beckham PA-C) History of cholecystectomy ?Z90.49 - Acquired absence of other specified parts of digestive tract (ICD-10) History of repair of rotator cuff ?Z98.890 - Other specified postprocedural states (ICD-10) History of left inguinal hernia repair ?Z98.890 - Other specified postprocedural states (ICD-10) ?Z87.19 - Personal history of other diseases of the digestive system (ICD-10) History of colonoscopy with polypectomy ?Z98.890 - Other specified postprocedural states (ICD-10) ?Z86.010 - Personal history of colonic polyps (ICD-10) Family History Brother Cerebral aneurysm Liver cancer Myocardial infarction Sister Cerebral aneurysm Social History Narrative: Chewing tobacco nicotine dependence Does not use illicit drugs occasional alcohol consumption What is your current living situation?: I presently have a place to live Problems where you live: no known problems Problems where you live details: [place] In the past 12 months, utilities in danger of being shut off: no In the past 12 mos, have been you worried that your food would run out before you had money to buy more?: never true In the past 12 mos, the food you bought just didn't last and you didn't have money to buy more?: never true Highest level of school completed/degree received: Associate degree: occupational, technical, vocational program Smoking Status: Never smoker Do you use any of these nicotine containing products: Smokeless Tobacco Second hand tobacco smoke exposure: No How often do you have a drink containing alcohol: 2-4 times a month How many standard drinks containing alcohol do you have on a typical day: 1 or 2 How often do you have six or more drinks on one occasion: Never AUDIT-C Alcohol total score: 2 Non-prescribed substance use: denies use How often does anyone, including family, friends and others, physically hurt you: never How often does anyone, including family, friends and others, insult or talk down to you: never How often does anyone, including family, friends and others, threaten you with harm: never How often does anyone, including family, friends and others, scream or curse at you: never service: No Exam Narrative Exam Narrative: Constitutional: Well-developed, well-nourished, no acute distress. HEENT: Normocephalic, atraumatic. Neck: Normal range of motion. Nontender. Supple. Heart: Regular. No murmurs. Normal rate. Intact distal pulses. Lungs: Clear to auscultation. No chest discomfort. No wheezes, rhonchi, or rales. Abdomen: Normal bowel sounds. Diffuse tenderness in the abdomen. No rebound tenderness. Surgical wounds appear to be healing normally. Genitalia: Deferred. Back: No midline tenderness. Normal range of motion. Extremities: Normal range of motion. No injury. Skin: Intact. No rash. Warm. No erythema or pallor. Neurologic: No altered sensation. No weakness. Alert and oriented. Psychiatric: No suicidality. No anxiety or depression. No insomnia. Nursing notes and vitals signs are reviewed. Const Vital Signs, click to edit/add: Vital Signs - 24 hr 02/05/24 20:57 02/05/24 21:34 Temperature 101.1 F H Pulse Rate [Pulse Oximeter] 94 82 Respiratory Rate 20 18 Blood Pressure [Right Upper Arm] 112/69 114/73 Pulse Oximetry 95 92 Oxygen Delivery Method Room Air Room Air Course Vital Signs Vital signs: Initial Vital Signs Temperature 101.1 F H 02/05/24 20:57 Temperature Source Temporal Artery Scan 02/05/24 20:57 Pulse Rate 94 02/05/24 20:57 Respiratory Rate 20 02/05/24 20:57 Blood Pressure 112/69 02/05/24 20:57 Blood Pressure Mean 83 02/05/24 20:57 Blood Pressure Position Sitting 02/05/24 20:57 Pulse Oximetry 95 02/05/24 20:57 Oxygen Delivery Method Room Air 02/05/24 20:57 Vital Signs Temperature 101.1 F H 02/05/24 20:57 Pulse Rate 94 02/05/24 20:57 Respiratory Rate 20 02/05/24 20:57 Blood Pressure 112/69 02/05/24 20:57 Pulse Oximetry 95 02/05/24 20:57 Oxygen Delivery Method Room Air 02/05/24 20:57 Temperature 101.1 F H 02/05/24 20:57 Pulse Rate 82 02/05/24 21:34 Respiratory Rate 18 02/05/24 21:34 Blood Pressure 114/73 02/05/24 21:34 Pulse Oximetry 92 02/05/24 21:34 Oxygen Delivery Method Room Air 02/05/24 21:34 Medications Administered Medications: Discontinued Medications Generic Name Dose Route Start Last Admin Trade Name Freq PRN Reason Stop Dose Admin Sodium Chloride 500 mls @ 500 mls/hr 02/05/24 21:40 02/05/24 21:53 0.9 % Sodium Chloride 500 Ml IV 02/05/24 22:39 500 mls/hr .Q1H ONE Administration MDM - Fever MDM Narrative Medical decision making narrative: This patient comes in with fever and is status post cholecystectomy that occurred fiber 6 days ago. An IV was established and labs are acquired. His white count returns in normal range and his lactate is also normal. All labs are reassuring except there is an explanation for his symptoms with a nasal swab positive for influenza A. This patient is okay to be returning home. He did receive an [facility] prescription for Tamiflu. I encouraged use [id number] medicines also as needed and directed. Lab Data Labs: Lab Results 02/05/24 02/05/24 02/05/24 Range/Units 21:00 21:01 21:50 WBC 5.56 (4.50-11.00) K/uL RBC 4.44 (4.30-5.90) m/uL Hgb 13.9 (13.5-17.5) gm/dL Hct 41.7 (37.0-53.0) % MCV 94 (80-100) fL MCH 31 (26-34) pg MCHC 33 (32-36) gm/dL RDW Coeff of Alden 11.8 (11.5-15.5) % Plt Count 217 (140-440) K/uL Neut % (Auto) 72.6 H (42.0-72.0) % Lymph % (Auto) 11.3 L (20-44) % Sp[place]ding % (Auto) 11.7 H (0.0-11.0) % Eos % (Auto) 0.4 (0.0-7.0) % Baso % (Auto) 0.4 (0.0-3.0) % Neut # (Auto) 4.00 (1.7-7.0) K/uL Lymph # (Auto) 0.60 L (0.90-2.90) K/uL Sp[place]ding # (Auto) 0.70 (0.00-0.90) K/UL Eos # (Auto) 0.02 (0.00-0.50) K/uL Baso # (Auto) 0.02 (0.00-0.30) K/uL Abs Immat Gran (auto) 0.20 (0.00-0.30) K/uL Imm/Tot Granulo (auto) 3.6 % Sodium 132 L (135-149) mmol/L Potassium 4.0 (3.6-5.1) mmol/L Chloride 102 (96-114) mmol/L Carbon Dioxide 24 (20-32) mmol/L Anion Gap 6 L (7-15) mEq/L BUN 17 (7-30) mg/dL Creatinine 0.7 (0.5-1.5) mg/dL Estimated Creat Clear 77.06 Estimated GFR 103 ml/min Glucose 118 H (60-115) mg/dL Lactate 0.7 (0.5-1.9) mmol/L Calcium 8.2 L (8.4-10.6) mg/dL Total Bilirubin 0.4 (0.1-1.5) mg/dL Direct Bilirubin (0.0-0.5) mg/dL AST (12-35) U/L ALT (4-50) U/L Alkaline Phosphatase (40-150) U/L Total Protein (6.0-8.3) g/dL Albumin (3.3-5.0) g/dL Urine Color Yellow (Yellow) Urine Appearance Clear (Clear) Urine pH 6.5 (5.0-8.5) Ur Specific Darby 1.025 (1.000-1.030) Urine Protein 1+ A (Negative) Urine Glucose (UA) Negative (Negative) Urine Ketones Negative (Negative) Urine Blood Negative (Negative) Urine Nitrite Negative (Negative) Urine Bilirubin Negative (Negative) Urine Urobilinogen 0.2 (0.2-1.0) Ur Leukocyte Esterase Negative (Negative) Urine RBC 0-2 (0-2) Urine WBC 0-2 (0-5) Ur Squamous Epith Cells None (None-Few) Urine Bacteria None (None) SARS-CoV-2 (PCR) Negative SARS-CoV-2 (Negative) Influenza Type A (PCR) POSITIVE PCR FLU A A (Negative) Influenza Type B (PCR) Negative PCR FLU B (Negative) RSV (PCR) Negative PCR RSV (Negative) 02/05/24 02/05/24 02/05/24 Range/Units 21:50 21:50 21:50 WBC (4.50-11.00) K/uL RBC (4.30-5.90) m/uL Hgb (13.5-17.5) gm/dL Hct (37.0-53.0) % MCV (80-100) fL MCH (26-34) pg MCHC (32-36) gm/dL RDW Coeff of Alden (11.5-15.5) % Plt Count (140-440) K/uL Neut % (Auto) (42.0-72.0) % Lymph % (Auto) (20-44) % Spalding % (Auto) (0.0-11.0) % Eos % (Auto) (0.0-7.0) % Baso % (Auto) (0.0-3.0) % Neut # (Auto) (1.7-7.0) K/uL Lymph # (Auto) (0.90-2.90) K/uL Sp[place]ding # (Auto) (0.00-0.90) K/UL Eos # (Auto) (0.00-0.50) K/uL Baso # (Auto) (0.00-0.30) K/uL Abs Immat Gran (auto) (0.00-0.30) K/uL Imm/Tot Granulo (auto) % Sodium (135-149) mmol/L Potassium (3.6-5.1) mmol/L Chloride (96-114) mmol/L Carbon Dioxide (20-32) mmol/L Anion Gap (7-15) mEq/L BUN (7-30) mg/dL Creatinine (0.5-1.5) mg/dL Estimated Creat Clear Estimated GFR ml/min Glucose (60-115) mg/dL Lactate (0.5-1.9) mmol/L Calcium (8.4-10.6) mg/dL Total Bilirubin Cancelled (0.1-1.5) mg/dL Direct Bilirubin 0.2 Cancelled (0.0-0.5) mg/dL AST 32 Cancelled (12-35) U/L ALT 31 (4-50) U/L Alkaline Phosphatase (40-150) U/L Total Protein (6.0-8.3) g/dL Albumin (3.3-5.0) g/dL Urine Color (Yellow) Urine Appearance (Clear) Urine pH (5.0-8.5) Ur Specific Darby (1.000-1.030) Urine Protein (Negative) Urine Glucose (UA) (Negative) Urine Ketones (Negative) Urine Blood (Negative) Urine Nitrite (Negative) Urine Bilirubin (Negative) Urine Urobilinogen (0.2-1.0) Ur Leukocyte Esterase (Negative) Urine RBC (0-2) Urine WBC (0-5) Ur Squamous Epith Cells (None-Few) Urine Bacteria (None) SARS-CoV-2 (PCR) (Negative) Influenza Type A (PCR) (Negative) Influenza Type B (PCR) (Negative) RSV (PCR) (Negative) 02/05/24 02/05/24 02/05/24 Range/Units 21:50 21:50 21:50 WBC (4.50-11.00) K/uL RBC (4.30-5.90) m/uL Hgb (13.5-17.5) gm/dL Hct (37.0-53.0) % MCV (80-100) fL MCH (26-34) pg MCHC (32-36) gm/dL RDW Coeff of Alden (11.5-15.5) % Plt Count (140-440) K/uL Neut % (Auto) (42.0-72.0) % Lymph % (Auto) (20-44) % Sp[place]ding % (Auto) (0.0-11.0) % Eos % (Auto) (0.0-7.0) % Baso % (Auto) (0.0-3.0) % Neut # (Auto) (1.7-7.0) K/uL Lymph # (Auto) (0.90-2.90) K/uL Sp[place]ding # (Auto) (0.00-0.90) K/UL Eos # (Auto) (0.00-0.50) K/uL Baso # (Auto) (0.00-0.30) K/uL Abs Immat Gran (auto) (0.00-0.30) K/uL Imm/Tot Granulo (auto) % Sodium (135-149) mmol/L Potassium (3.6-5.1) mmol/L Chloride (96-114) mmol/L Carbon Dioxide (20-32) mmol/L Anion Gap (7-15) mEq/L BUN (7-30) mg/dL Creatinine (0.5-1.5) mg/dL Estimated Creat Clear Estimated GFR ml/min Glucose (60-115) mg/dL Lactate (0.5-1.9) mmol/L Calcium (8.4-10.6) mg/dL Total Bilirubin (0.1-1.5) mg/dL Direct Bilirubin (0.0-0.5) mg/dL AST (12-35) U/L ALT Cancelled (4-50) U/L Alkaline Phosphatase 81 Cancelled (40-150) U/L Total Protein 6.1 Cancelled (6.0-8.3) g/dL Albumin 3.1 L (3.3-5.0) g/dL Urine Color (Yellow) Urine Appearance (Clear) Urine pH (5.0-8.5) Ur Specific Darby (1.000-1.030) Urine Protein (Negative) Urine Glucose (UA) (Negative) Urine Ketones (Negative) Urine Blood (Negative) Urine Nitrite (Negative) Urine Bilirubin (Negative) Urine Urobilinogen (0.2-1.0) Ur Leukocyte Esterase (Negative) Urine RBC (0-2) Urine WBC (0-5) Ur Squamous Epith Cells (None-Few) Urine Bacteria (None) SARS-CoV-2 (PCR) (Negative) Influenza Type A (PCR) (Negative) Influenza Type B (PCR) (Negative) RSV (PCR) (Negative) 02/05/24 Range/Units 21:50 WBC (4.50-11.00) K/uL RBC (4.30-5.90) m/uL Hgb (13.5-17.5) gm/dL Hct (37.0-53.0) % MCV (80-100) fL MCH (26-34) pg MCHC (32-36) gm/dL RDW Coeff of Alden (11.5-15.5) % Plt Count (140-440) K/uL Neut % (Auto) (42.0-72.0) % Lymph % (Auto) (20-44) % [place] % (Auto) (0.0-11.0) % Eos % (Auto) (0.0-7.0) % Baso % (Auto) (0.0-3.0) % Neut # (Auto) (1.7-7.0) K/uL Lymph # (Auto) (0.90-2.90) K/uL [place] # (Auto) (0.00-0.90) K/UL Eos # (Auto) (0.00-0.50) K/uL Baso # (Auto) (0.00-0.30) K/uL Abs Immat Gran (auto) (0.00-0.30) K/uL Imm/Tot Granulo (auto) % Sodium (135-149) mmol/L Potassium (3.6-5.1) mmol/L Chloride (96-114) mmol/L Carbon Dioxide (20-32) mmol/L Anion Gap (7-15) mEq/L BUN (7-30) mg/dL Creatinine (0.5-1.5) mg/dL Estimated Creat Clear Estimated GFR ml/min Glucose (60-115) mg/dL Lactate (0.5-1.9) mmol/L Calcium (8.4-10.6) mg/dL Total Bilirubin (0.1-1.5) mg/dL Direct Bilirubin (0.0-0.5) mg/dL AST (12-35) U/L ALT (4-50) U/L Alkaline Phosphatase (40-150) U/L Total Protein (6.0-8.3) g/dL Albumin Cancelled (3.3-5.0) g/dL Urine Color (Yellow) Urine Appearance (Clear) Urine pH (5.0-8.5) Ur Specific Darby (1.000-1.030) Urine Protein (Negative) Urine Glucose (UA) (Negative) Urine Ketones (Negative) Urine Blood (Negative) Urine Nitrite (Negative) Urine Bilirubin (Negative) Urine Urobilinogen (0.2-1.0) Ur Leukocyte Esterase (Negative) Urine RBC (0-2) Urine WBC (0-5) Ur Squamous Epith Cells (None-Few) Urine Bacteria (None) SARS-CoV-2 (PCR) (Negative) Influenza Type A (PCR) (Negative) Influenza Type B (PCR) (Negative) RSV (PCR) (Negative) Discharge Plan Discharge Clinical Impression: Influenza A Patient Disposition: Home, Self-Care Condition: Stable Additional Instructions: Take Tamiflu as prescribed and use [id number] medicines also as needed and directed. Follow up with MD return if worsening. Prescriptions: No Action Flonase Sensimist 27.5 mcg/actuation spray,suspension 2 spray intranasal DAILY PRN Rx Instructions: PRN RAGWEED SEASON valacyclovir [Valtrex] 1 gram tablet 2,000 mg PO BID PRN Rx Instructions: 2grams twice daily for 1 day for onset of cold sores hydrocodone-acetaminophen 5-325 mg tablet 1 tab PO Q6H PRN (Reason: pain) Qty: 20 0RF senna 8.6 mg capsule 8.6 mg PO DAILY PRN (Reason: constipation) Qty: 90 0RF Follow Up/Referrals: Samia Beckham PA-C [Primary Care Provider] - Stand Alone Forms: [facility] Info Instructions
[2024-02-05 21:52] LABS: PCR FLU A POSITIVE PCR FLU A (Negative); PCR FLU B Negative PCR FLU B (Negative); PCR RSV Negative PCR RSV (Negative); SARS PCR* Negative SARS-CoV-2 (Negative)
[2024-02-05] MEDS: 0.9 % SODIUM CHLORIDE 500 ML 500 ML IV (21:53)
[2024-02-05 21:58] LABS: Lactate* 0.7 mmol/L (0.5-1.9)
[2024-02-05 22:00] LABS: Basophils Absolute Auto 0.02 K/uL (0.00-0.30); Basophils Percent Auto 0.4 % (0.0-3.0); Eosinophils Absolute Auto 0.02 K/uL (0.00-0.50); Eosinophils Percent Auto 0.4 % (0.0-7.0); Hematocrit 41.7 % (37.0-53.0); Hemoglobin* 13.9 gm/dL (13.5-17.5); Immature Granulocytes Pct Auto 3.6 %; Lymphocytes Percent Auto 11.3 % (20-44); Mean Corpuscular HGB Conc 33 gm/dL (32-36); Mean Corpuscular Hemoglobin 31 pg (26-34); Mean Corpuscular Volume 94 fL (80-100); Monocytes Percent Auto 11.7 % (0.0-11.0); Neutrophils Percent Auto 72.6 % (42.0-72.0); Platelet Count* 217 K/uL (140-440); RDW Coefficient of Variation % 11.8 % (11.5-15.5); Red Blood Count 4.44 m/uL (4.30-5.90); White Blood Count* 5.56 K/uL (4.50-11.00)
[2024-02-05 22:12] LABS: Slide Review Reflex No
[2024-02-05 22:19] LABS: Albumin* 3.1 g/dL (3.3-5.0)
[2024-02-05 22:20] LABS: Chloride* 102 mmol/L (96-114); Sodium* 132 mmol/L (135-149)
[2024-02-05 22:22] LABS: Alkaline Phosphatase* 81 U/L (40-150); Anion Gap 6 mEq/L (7-15); Aspartate Amino Transferase* 32 U/L (12-35); Bilirubin Direct* 0.2 mg/dL (0.0-0.5); Bilirubin Total* 0.4 mg/dL (0.1-1.5); Blood Urea Nitrogen* 17 mg/dL (7-30); Carbon Dioxide* 24 mmol/L (20-32); Creatinine* 0.7 mg/dL (0.5-1.5); Est. Creatinine Clearance* 77.06; Estimated Glomerular Filt Rate 103 ml/min; Glucose* 118 mg/dL (60-115); Total Protein* 6.1 g/dL (6.0-8.3)
[2024-02-05 22:23] LABS: Alanine Aminotransferase* 31 U/L (4-50); Calcium* 8.2 mg/dL (8.4-10.6)
== END 2024-02-05 22:58 | disposition home or self-care (01) ==
PROVIDERS: Emergency Provider Emergency Medicine Emergency Medical Services; PCP Physician Assistant Medical
DX: J10.1 Influenza due to other identified influenza virus with other respiratory manifestations (principal)
CPT/HCPCS: 36415; 80048; 80076; 81001; 83605; 85025; 87631; 99283; 99284; J7030

== ENCOUNTER 2024-08-07 08:41 | Outpatient (CLI) | payer BC, SELFPAY | END 2024-08-07 08:42 | disposition home or self-care (01) | LOC: FRMREF 08:42 | PROVIDERS: PCP Physician Assistant Medical; Visit Provider Physician Assistant Medical | DX: R21 Rash and other nonspecific skin eruption (principal); R50.9 Fever, unspecified | CPT/HCPCS: 80053 ==

== ENCOUNTER 2024-09-15 07:36 | Outpatient (CLI) | payer MEDICARE, SELFPAY | END 2024-09-15 07:37 | disposition home or self-care (01) | PROVIDERS: PCP Physician Assistant Medical; Visit Provider Physician Assistant Medical | DX: M25.512 Pain in left shoulder (principal); Z11.8 Encounter for screening for other infectious and parasitic diseases | CPT/HCPCS: 86038; 86140; 86431; 86618 ==